=== PATIENT | female | born 1960 | race Caucasian/White ===

== ENCOUNTER 2022-10-22 10:08 | Outpatient (REF) | payer OTHER, SELFPAY ==
--- NOTE | ~2022-10-22 | MM_ITS ---
EXAMINATION: MM SCREENING DIGITAL BREAST TOMOSYNTHESIS, BILATERAL CLINICAL INFORMATION: Screening. Asymptomatic. The lifetime risk of breast cancer based on the Tyrer-Cuzick Model is 6%. COMPARISON: Mammography: 02/13/2020, 12/02/2017, 09/06/2013 TECHNIQUE: Digital breast tomosynthesis is performed in both the craniocaudal and mediolateral oblique views along with computer-aided detection (CAD). Synthesized 2D images are generated from the tomosynthesis. FINDINGS: The breasts are almost entirely fatty (ACR BI-RADS breast composition Category a). There are no significant masses, abnormal calcifications, or other abnormalities. Background stromal markings are stable. No developing density or architectural changes. The axilla and skin contours are unremarkable. MM/MM tomosynthesis screening BI IMPRESSION: No mammographic evidence of malignancy. ASSESSMENT: BI-RADS 1: Negative RECOMMENDATION: Routine annual mammography screening. This patient's information was entered into a reminder system with a target due date for their next mammogram.
== END 2022-10-22 10:09 | disposition home or self-care (01) ==
LOC: HO.MAMMO 10:08
PROVIDERS: PCP Internal Medicine; Visit Provider Internal Medicine
DX: Z12.31 Encounter for screening mammogram for malignant neoplasm of breast (principal)
CPT/HCPCS: 77063; 77067

== ENCOUNTER 2022-10-22 10:59 | Outpatient (REF) | payer OTHER, SELFPAY ==
[2022-10-22 13:27] LABS: MANUAL DIFF FLAG NO
[2022-10-22 14:02] LABS: Basophils Percent Auto 0.4 % (0-2); Eosinophils Percent Auto 0.5 % (0-4); Hematocrit 43.2 % (37.0-47.0); Hemoglobin 14.8 g/dl (12.0-16.0); Imm Gran Abs Auto 0.03 X10*3/uL (0.00-0.03); Imm Gran Pct Auto 0.5 % (0.0-0.4); Lymphocytes Absolute Auto 1.4 X10*3/uL (1.2-4.9); Lymphocytes Percent Auto 23.9 % (20-40); Mean Corpuscular HGB Conc 34.3 g/dl (31.0-35.0); Mean Corpuscular Hemoglobin 32.2 pg (27.0-33.0); Mean Corpuscular Volume 94.1 fL (80.0-98.0); Mean Platelet Volume 11.8 fL (9.4-12.3); Monocytes Absolute Auto 0.4 X10*3/uL (0.1-1.2); Monocytes Percent Auto 6.9 % (2-11); Neutrophils Absolute Auto 3.9 x10*3/uL (2.0-8.3); Neutrophils Percent Auto 67.8 % (45-73); Platelet Count 189 X10*3/uL (160-400); Red Blood Count 4.59 X10*6/uL (4.20-5.50); Red Cell Distribution Width 12.4 % (11.0-16.0); White Blood Count 5.7 X10*3/uL (4.8-10.8)
[2022-10-22 14:15] LABS: Estimated Average Glucose 117 mg/dL; Hemoglobin A1c % 5.7 %
[2022-10-22 14:21] LABS: Alanine Aminotransferase 19 U/L (0-31); Albumin Level 4.2 g/dL (3.5-5.0); Alkaline Phosphatase 94 U/L (39-117); Anion Gap 13 (12-20); Aspartate Amino Transferase 17 U/L (5-31); Bilirubin Total 0.8 mg/dL (0.0-1.0); Blood Urea Nitrogen 15 mg/dL (9-16); Calcium 9.7 mg/dL (8.4-10.2); Carbon Dioxide 28 mmol/L (22-29); Chloride 105 mmol/L (96-108); Cholesterol 256 mg/dL; Estimated Glomerular Filt Rate > 60; Glucose Random 119 mg/dL (60-115); HDL Cholesterol 64 mg/dL; LDL Cholesterol Calculated 174 mg/dl; Potassium 4.7 mmol/L (3.3-5.1); Sodium 141 mmol/L (135-145); Total Protein 6.6 g/dL (6.5-8.0); Triglycerides 92 mg/dL
[2022-10-22 14:53] LABS: Folate 8.6 ng/mL (> or = 4.0); Free T4 (Free Thyroxine) 0.89 ng/dL (0.71-1.85); Thyroid Stimulating Hormone 0.74 uIU/mL (0.32-4.0); Vitamin D 25-OH Total 6.2 ng/mL (>30)
[2022-10-22 15:18] LABS: Vitamin B12 196 pg/mL (200-900)
== END 2022-10-22 11:00 | disposition home or self-care (01) ==
LOC: HO.10HDL 10:59
PROVIDERS: Visit Provider Internal Medicine
DX: E78.00 Pure hypercholesterolemia, unspecified (principal); R73.02 Impaired glucose tolerance (oral); I10 Essential (primary) hypertension
CPT/HCPCS: 36415; 80053; 80061; 82306; 82607; 82746; 83036; 84439; 84443; 85025

== ENCOUNTER 2023-03-03 15:22 | Outpatient (AMB) | payer OTHER, SELFPAY ==
--- NOTE | 2023-03-03 15:57 | MHC.OFFWIV ---
Intake Vital Signs 03/03/23 15:59 Height 5 ft 1 in BP 120/80 Blood Pressure Location Rt brachial Position Sitting Pulse 94 Pulse Source Pulse Oximeter Temp 97.6 F Temp Source Temporal Artery Scan Pulse Oximetry (%) 97 Oxygen Delivery Method Room Air Intake Visit Reasons: EST poison renuka Intake Note: Pt is here c/o possible poison renuka on her face and arms. Patient Tobacco Use Status: Former Tobacco user Allergies No Known Allergies Allergy (Verified 03/03/23 15:59) Do you need a note to return to daycare/school/sports/work: No HPI HPI Comments History of Present Illness Details 62-year-old female presents with poison renuka exposure. [facility] Medical History Bacterial infection, unspecified Breast cancer screening by mammogram Hypercholesterolemia Hypertension Impaired glucose tolerance Leukopenia Obesity (BMI 30-39.9) Shingles rash Urinary tract infection Visual changes Vitamin D deficiency Surgical History History of appendectomy History of plastic surgery History of right hip replacement History of shoulder surgery History of total left hip arthroplasty Family History Father No problems noted. Mother Thyroid disease Hypertension Daughter In good health Brother Thyroid disease Social History Housing: House Alcohol intake: never Patient Tobacco Use Status: Former Tobacco user Years Smoked: 20 years old, quit now e-Cigarette/Vaping Use: Never Used Second Hand Smoke Exposure: No service: No Current occupational status: employed Cognitive needs: No Hearing needs: No Vision needs: Yes Review of Systems Const All systems reviewed & are unremarkable except as noted in HPI and below Skin/Breast Details: Rash on arms, hands, and face Physical Exam Vital Signs: Last Vital Signs Temp 97.6 F 03/03/23 15:59 Pulse 94 03/03/23 15:59 BP 120/80 03/03/23 15:59 Pulse Ox 97 03/03/23 15:59 Oxygen Delivery Method Room Air 03/03/23 15:59 Skin Other: Rash on the forearms bilaterally hands and face Assessment & Plan Assessment & Plan (1) Poison renuka: Code(s): L23.7 - Allergic contact dermatitis due to plants, except food Plan 62-year-old female presents with poison renuka exposure. Rash present on her arms, hands and face consistent with poison renuka and story of recent exposure while gardening given facial involvement will prescribe steroids Discharge instructions, follow up and treatment are discussed with patient in my usual fashion. Alternatives in treatment are also discussed. The patient will return for worsening symptoms or as needed. Advised that any labs/imaging ordered will be followed up on and contact made if further treatment needed. Counseled that patient's condition may require further evaluation and/or treatment. Symptoms of concern for worsening disorder discussed in detail in my customary manner. Patient does verbalize understanding of the plan, there are no apparent barriers to communication. The patient is given the opportunity to ask questions and have them answered to his/her satisfaction Medications: New prednisone 50 mg PO DAILY 5 days 5 tabs 0RF prednisone 4 tabs (40mg) day 6. 3 tabs (30mg) day 7, 2 tabs (20 mg) day 8, and 1 tab (10mg) day 9 10 mg PO DAILY 10 tabs 0RF Patient Instructions: Soothing measure options: ?- Oatmeal baths ?- Cool, wet compresses ?- Ice packs ?- Topical menthol and phenol (calamine lotion) compounds ?- Topical astringents under occlusion dressing to dry weeping lesions ?-They are agut-bkn-ngjtpxd treatment such as Burow's solution, Domeboro and Zanfel that can help with symptoms. ?-If the itching is preventing him from sleep, you can use medication such as Benadryl to help keep you from itching at nighttime. Coding Level of Care Code Est Pt Level 3 (95363) Diagnoses Poison renuka L23.7
[2023-03-03 15:59] VITALS: BP 120/80; PULSE 94; TEMP 36.4; O2SAT 97
== END 2023-03-03 16:17 | disposition home or self-care (01) ==
PROVIDERS: PCP Internal Medicine; Visit Provider Physician Assistant
DX: L23.7 Allergic contact dermatitis due to plants, except food (principal)
CPT/HCPCS: 99213

== ENCOUNTER 2023-07-11 10:07 | Outpatient (AMB) | payer OTHER, SELFPAY ==
--- NOTE | 2023-07-11 10:08 | MHC.PC.OV ---
Intake Visit Reasons: Cold Symptoms Allergies No Known Allergies Allergy (Verified 07/11/23 10:08) Tobacco use date assessed: 11/01/22 Dental Screening Dental Screen Date: 07/11/23 Did you have a dental visit in the last 12 months?: Yes Did you have a dental problem in the last 6 months where you did not have access to dental care?: No Was dental information given to patient?: Patient has dentist HPI HPI Comments History of Present Illness Details 62-year-old obese female with impaired glucose tolerance hypercholesterolemia hypertension generalized anxiety disorder last seen in February. Patient of Dr. Gann presents today for telehealth appointment. Pateint states 2 weeks ago started with sore throat, fever chills. cough. Patient reports sore throat has resolved. Patient continues to have productive cough yellow sputum. Nasal congestion with yellow drainage. Patient reports sinus pain and pressure improving. Patient taking kjal-[id number]-moiguzt cough syrup in Tylenol with minimal relief. Patient denies shortness of breath and wheezing. Reports her fevers have resolved. Patient states swabbed herself for COVID when she 1st started with symptoms and it was negative. [facility] Medical History Bacterial infection, unspecified Breast cancer screening by mammogram Hypercholesterolemia Hypertension Impaired glucose tolerance Leukopenia Obesity (BMI 30-39.9) Shingles rash Urinary tract infection Visual changes Vitamin D deficiency Surgical History History of appendectomy History of plastic surgery History of right hip replacement History of shoulder surgery History of total left hip arthroplasty Family History Father No problems noted. Mother Thyroid disease Hypertension Daughter In good health Brother Thyroid disease Social History Housing: House Alcohol intake: never Patient Tobacco Use Status: Former Tobacco user Tobacco use type: Cigarette Years Smoked: 20 years old, quit now e-Cigarette/Vaping Use: Never Used Second Hand Smoke Exposure: No service: No Current occupational status: employed Cognitive needs: No Hearing needs: No Vision needs: Yes Questionnaire PHQ-9 Over the last 2 weeks, how often have you been bothered by any of the following problems? 1. Little interest or pleasure in doing things: not at all 2. Feeling down, depressed, or hopeless: not at all 3. Trouble falling or staying asleep, or sleeping too much: not at all 4. Feeling tired or having little energy: not at all 5. Poor appetite or overeating: not at all 6. Feeling bad about yourself - or that you are a failure or have let yourself or your family down: not at all 7. Trouble concentrating on things, such as reading the newspaper or watching television: not at all 8. Moving or speaking so slowly that other people could have noticed. Or the opposite - being so fidgety or restless that you have been moving around a lot more than usual: not at all 9. Thoughts that you would be better off or of hurting yourself in some way: not at all Total score: 0 Depression Screening Interpretation: Negative Depression Screening Done: Yes Source: Developed by Drs. Cruz Quiroga, Lacey Ca, Robert Raya and colleagues, with an educational eddie from [employer]. Thrive Questionnaire Date Thrive assessed: 09/24/22 AUDIT C Alcohol Use Questionnaire (AUDIT-C) 1. How often do you have a drink containing alcohol?: Never 3. How often do you have six or more drinks on one occasion?: Never Total Score: 0 Score Reviewed/Action Taken: Yes KUSHAL-7 AMB Questionnaire KUSHAL-7 Date KUSHAL - 7 assessed: 11/01/22 Source: Developed by Drs. Cruz Quiroga, Lacey Ca, Robert Raya and colleagues, with an educational eddie from [employer]. Review of Systems Const Denies body aches and Denies chills ENT Denies otalgia, Reports nasal congestion, Reports nasal discharge (yellow), Reports sinus pain and Reports sinus pressure Card Reports no additional complaints, Denies chest pain and Denies dyspnea Resp Reports chest congestion, Reports cough, Denies dyspnea and Denies wheezing GI Reports no additional complaints Aller/Immun Denies wheezing Physical exam (Primary Care) Tobacco/Smoking Status: Tobacco use Status Tobacco use date assessed 11/01/22 07/11/23 10:09 Patient Tobacco Use Status Former Tobacco user 07/11/23 10:09 Tobacco use type Cigarette 07/11/23 10:09 e-Cigarette/Vaping Use Never Used 07/11/23 10:09 PHQ-9: PHQ-9 Score PHQ-9: Total score 0 07/11/23 10:14 Depression Screening Interpretation: Negative Thrive Assessment: Date of Thrive Assessment Date Thrive assessed 09/24/22 07/11/23 10:09 Const Other: Patient alert and oriented x3, speaking in full sentences. Patient noted to have congested cough over the phone. Telehealth Telehealth Location of provider rendering services: practice address Location of patient: address on file Patient Identification confirmed using: Name, : Yes Telehealth method: voice only Patient verbally consented to treatment: Yes Patient verbally consented to billing insurance company: Yes Patient informed of any privacy concerns related to visit: Yes Minutes spent on Phone/Video with Pt.: 10 Assessment and Plan Assessment & Plan (1) Upper respiratory infection: Code(s): J06.9 - Acute upper respiratory infection, unspecified Plan: Given patient continues to have nasal congestion and congested cough with yellow sputum production persisting x2 weeks will cover with azithromycin for upper respiratory infection. Benzonatate referral sent to patient's pharmacy for cough. Side the symptoms reviewed with patient when to follow-up or seek medical attention. Patient agreeable to plan of care. Plan Keep scheduled follow-up with PCP or follow-up sooner if needed Medications: New benzonatate 100 mg PO TID PRN 20 caps 0RF cough azithromycin For 250 mg dose pack: take 500 mg today (day 1), then 250 mg for 4 days (days 2-5) PO 6 tabs 0RF Coding Level of Care Code Est Pt Level 3 (53379) Diagnoses Upper respiratory infection J06.9
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
== END 2023-07-11 10:17 | disposition home or self-care (01) ==
LOC: HO.HMGH 10:07
PROVIDERS: PCP Internal Medicine; Visit Provider Nurse Practitioner Family
DX: J06.9 Acute upper respiratory infection, unspecified (principal)
CPT/HCPCS: 99213

== ENCOUNTER 2023-09-02 14:42 | Outpatient (AMB) | payer OTHER, SELFPAY ==
[2023-09-02 14:44] VITALS: BP 130/96; PULSE 86; O2SAT 99; BMI 34.4
--- NOTE | 2023-09-02 14:44 | MHC.PC.OV ---
Vital Signs 09/02/23 14:44 09/02/23 15:18 Height 5 ft 1 in Weight 182 lb 0.6 oz BMI 34.4 BP 130/96 H 128/90 H Blood Pressure Location Lt brachial Lt brachial Position Sitting Sitting Pulse 86 Pulse Source Pulse Oximeter Pulse Oximetry (%) 99 Oxygen Delivery Method Room Air Intake Visit Reasons: plantar fasciitis, Obesity Residential Living Assistant Required: No Allergies No Known Allergies Allergy (Verified 09/02/23 14:44) Medication List - Last Reconciled 09/02/23 by Sam Gann MD alprazolam 0.25 mg PO DAILY PRN 30 days benzonatate 100 mg PO TID PRN blood pressure monitor (Blood Pressure Kit) As directed cholecalciferol (vitamin D3) 50 mcg PO DAILY 90 days cyanocobalamin (vitamin B-12) 1,000 mcg PO DAILY liraglutide (weight loss) (Saxenda) inject subcutaneously once daily: week 1 = 0.6 mg; week 2 = 1.2 mg; week 3 = 1.8 mg; week 4 = 2.4 mg; then 3 mg daily subcut lisinopril-hydrochlorothiazide 20-12.5 mg 1 tab PO DAILY 90 days pen needle, diabetic (BD Ultra-Fine Karrie Pen Needle) test once daily tramadol 50 mg PO Q6-8H 30 days Tobacco use date assessed: 09/02/23 Dental Screening Dental Screen Date: 09/02/23 Did you have a dental visit in the last 12 months?: Yes Did you have a dental problem in the last 6 months where you did not have access to dental care?: No Was dental information given to patient?: Patient has dentist HPI plantar fasciitis, Obesity HPI Details 62-year-old obese female with impaired glucose tolerance hypertension hypercholesterolemia generalized anxiety disorder last seen in July for an upper respiratory tract infection patient is here for follow-up. Patient's colonoscopy is due, hard time acquiring the GLP 1 injection and discussed that can sent the prescription to wherever she can get the medication. Meanwhile noted blood pressure to be mildly elevated and advised to monitor at home and we can have to adjust medication. [facility] Medical History Bacterial infection, unspecified Breast cancer screening by mammogram Hypercholesterolemia Hypertension Impaired glucose tolerance Leukopenia Obesity (BMI 30-39.9) Shingles rash Urinary tract infection Visual changes Vitamin D deficiency Surgical History History of appendectomy History of plastic surgery History of right hip replacement History of shoulder surgery History of total left hip arthroplasty Family History Father No problems noted. Mother Thyroid disease Hypertension Daughter In good health Brother Thyroid disease Social History Housing: House Alcohol intake: never Patient Tobacco Use Status: Former Tobacco user Tobacco use type: Cigarette Years Smoked: 20 years old, quit now e-Cigarette/Vaping Use: Never Used Second Hand Smoke Exposure: No service: No Current occupational status: employed Cognitive needs: No Hearing needs: No Vision needs: Yes Questionnaire Thrive Questionnaire Date Thrive assessed: 09/02/23 I am a: Patient What is your living situation today?: I have a steady place to live Within the past 12 months, did the food you bought not last and you didn't have the money to get more?: Never true Within the past 12 months, did you worry whether your food would run out before you got money to buy more?: Never true Do you have trouble paying for medicines?: No Do you have trouble getting transportation to medical appointments?: No Do you have trouble paying your heating and electricity bill?: No Do you have trouble taking care of your child, family member or friend?: No Do you have trouble with day-to-day activities such as bathing, preparing meals, shopping, managing finances, etc.?: No Are you currently unemployed and looking for a job?: No Are you interested in more education?: No THRIVE Score: 0 AUDIT C Alcohol Use Questionnaire (AUDIT-C) 1. How often do you have a drink containing alcohol?: Never 3. How often do you have six or more drinks on one occasion?: Never Total Score: 0 Score Reviewed/Action Taken: Yes KUSHAL-7 AMB Questionnaire KUSHAL-7 Date KUSHAL - 7 assessed: 09/02/23 Feeling nervous, anxious, or on edge: 0 = Not at all Not being able to stop or control worryin = Not at all Worrying too much about different things: 0 = Not at all Trouble relaxin = Not at all Being so restless that it is hard to sit still: 0 = Not at all Becoming easily annoyed or irritable: 0 = Not at all Feeling afraid as if something awful might happen: 0 = Not at all Total KUSHAL-7 score (0-4 normal; 5-9 mild; 10-14 moderate; 15-21 severe): 0 Source: Developed by Drs. Cruz Quiroga, Lacey Ca, Robert Raya and colleagues, with an educational eddie from [employer] Physical exam (Primary Care) Vital Signs: Last Vital Signs Pulse 86 09/02/23 14:44 BP 130/96 H 09/02/23 14:44 Pulse Ox 99 09/02/23 14:44 Oxygen Delivery Method Room Air 09/02/23 14:44 BMI result Body Mass Index 34.4 Tobacco/Smoking Status: Tobacco use Status Tobacco use date assessed 09/02/23 09/02/23 14:45 Patient Tobacco Use Status Former Tobacco user 09/02/23 14:45 Tobacco use type Cigarette 09/02/23 14:45 e-Cigarette/Vaping Use Never Used 09/02/23 14:45 Thrive Assessment: Date of Thrive Assessment Date Thrive assessed 09/02/23 09/02/23 14:45 Const General: alert; No acute distress Eyes Conjunctivae: conjunctivae normal Resp Auscultation: clear to auscultation bilaterally Cardio Rate: regular rate Rhythm: regular rhythm GI Inspection: Yes normal to inspection Extrem General: Yes normal to inspection and No edema Assessment and Plan Assessment & Plan (1) Obesity (BMI 30-39.9): Code(s): E66.9 - Obesity, unspecified Plan: med rx prescribed (2) Hypertension: Code(s): I10 - Essential (primary) hypertension Qualifiers: Hypertension type: essential hypertension Qualified Code(s): I10 - Essential (primary) hypertension Plan: Blood pressure presently on lisinopril hydrochlorothiazide (3) Hypercholesterolemia: Code(s): E78.00 - Pure hypercholesterolemia, unspecified Plan: Avoid fried foods, chicken skin, eggs, butter margarine, pastries and meat. Be it pork or beef they have a lot of cholesterol LDL goal of less than 130 and triglyceride of less than 150 patient will need blood work (4) Impaired glucose tolerance: Code(s): R73.02 - Impaired glucose tolerance (oral) Plan: Decrease the amount of carbohydrate intake, pasta, bread, rice and potatoes are all sugar and that is aside from all the sweet stuff, remember that fruits are good but they are Sweet also. (5) Generalized anxiety disorder: Comment: decline counselling 08/2023 Code(s): F41.1 - Generalized anxiety disorder Plan: Continue with present medication (6) Colon cancer screening: Code(s): Z12.11 - Encounter for screening for malignant neoplasm of colon Plan: Reminded about colonoscopy Medications: New tirzepatide (weight loss) (Zepbound) 2.5 mg (0.5 mL) subcut QWEEK 4 weeks 2 mL 0RF E66.9 - Obesity, unspecified Discontinued liraglutide (weight loss) (Saxenda) Discontinued Reason: Doctor's Order inject subcutaneously once daily: week 1 = 0.6 mg; week 2 = 1.2 mg; week 3 = 1.8 mg; week 4 = 2.4 mg; then 3 mg daily subcut 15 mL 0RF E66.9 - Obesity, unspecified Coding Level of Care Code Est Pt Level 4 (15387) Diagnoses Obesity (BMI 30-39.9) E66.9 Essential hypertension I10 Hypertension type: essential hypertension Hypercholesterolemia E78.00 Impaired glucose tolerance R73.02 Generalized anxiety disorder F41.1 Colon cancer screening Z12.11
[2023-09-02 15:18] VITALS: BP 128/90
== END 2023-09-02 15:26 | disposition home or self-care (01) ==
PROVIDERS: PCP Internal Medicine; Visit Provider Internal Medicine
DX: I10 Essential (primary) hypertension (principal); E78.00 Pure hypercholesterolemia, unspecified; E66.9 Obesity, unspecified; Z68.34 Body mass index [BMI] 34.0-34.9, adult; R73.02 Impaired glucose tolerance (oral); F41.1 Generalized anxiety disorder
CPT/HCPCS: 99214

== ENCOUNTER 2024-03-24 10:22 | Outpatient (REF) | payer OTHER, SELFPAY ==
[2024-03-24 10:33] LABS: MANUAL DIFF FLAG NO
[2024-03-24 11:10] LABS: Basophils Percent Auto 0.4 % (0-2); Eosinophils Absolute Auto 0.1 X10*3/uL (0.0-0.4); Eosinophils Percent Auto 1.3 % (0-4); Hematocrit 43.9 % (37.0-47.0); Imm Gran Abs Auto 0.01 X10*3/uL (0.00-0.03); Imm Gran Pct Auto 0.2 % (0.0-0.4); Lymphocytes Absolute Auto 1.8 X10*3/uL (1.2-4.9); Lymphocytes Percent Auto 40.2 % (20-40); Mean Corpuscular HGB Conc 34.2 g/dl (31.0-35.0); Mean Corpuscular Hemoglobin 32.7 pg (27.0-33.0); Mean Corpuscular Volume 95.6 fL (80.0-98.0); Mean Platelet Volume 11.4 fL (9.4-12.3); Monocytes Absolute Auto 0.4 X10*3/uL (0.1-1.2); Monocytes Percent Auto 9.6 % (2-11); Neutrophils Absolute Auto 2.2 x10*3/uL (2.0-8.3); Neutrophils Percent Auto 48.3 % (45-73); Platelet Count 184 X10*3/uL (160-400); Red Blood Count 4.59 X10*6/uL (4.20-5.50); White Blood Count 4.5 X10*3/uL (4.8-10.8)
[2024-03-24 11:17] LABS: Estimated Average Glucose 100 mg/dL; Hemoglobin A1c % 5.1 % (<6.0)
[2024-03-24 11:45] LABS: Alanine Aminotransferase 14 U/L (0-31); Albumin Level 4.1 g/dL (3.5-5.0); Alkaline Phosphatase 70 U/L (39-117); Anion Gap 11 (12-20); Aspartate Amino Transferase 16 U/L (5-31); Bilirubin Total 0.6 mg/dL (0.0-1.0); Blood Urea Nitrogen 17 mg/dL (9-16); Calcium 9.9 mg/dL (8.4-10.2); Carbon Dioxide 26 mmol/L (22-29); Chloride 108 mmol/L (96-108); Cholesterol 271 mg/dL (<200); Estimated Glomerular Filt Rate > 60; Glucose Random 97 mg/dL (60-115); HDL Cholesterol 69 mg/dL (>40); LDL Cholesterol Calculated 181 mg/dL (<100); Potassium 4.2 mmol/L (3.3-5.1); Sodium 141 mmol/L (135-145); Total Protein 6.8 g/dL (6.5-8.0); Triglycerides 109 mg/dL (<150)
[2024-03-24 12:02] LABS: Free T4 (Free Thyroxine) 0.98 ng/dL (0.71-1.85); Thyroid Stimulating Hormone 1.05 uIU/mL (0.32-4.0); Vitamin D 25-OH Total 34.9 ng/mL (>30)
[2024-03-24 12:11] LABS: Folate 7.3 ng/mL (> or = 4.0); Vitamin B12 762 pg/mL (200-900)
== END 2024-03-24 10:23 | disposition home or self-care (01) ==
LOC: HO.LAB 10:22
PROVIDERS: PCP Internal Medicine; Visit Provider Internal Medicine
DX: E78.00 Pure hypercholesterolemia, unspecified (principal); E53.8 Deficiency of other specified B group vitamins; R73.02 Impaired glucose tolerance (oral); E55.9 Vitamin D deficiency, unspecified
CPT/HCPCS: 36415; 80053; 80061; 82306; 82607; 82746; 83036; 84439; 84443; 85025

== ENCOUNTER 2024-03-26 13:10 | Outpatient (AMB) | payer OTHER, SELFPAY ==
--- NOTE | 2024-03-26 13:18 | A.OFFPC_ITS ---
Vital Signs 03/26/24 13:19 Height 5 ft 1 in Weight 167 lb 8 oz BMI 31.6 BP 122/80 Blood Pressure Location Lt brachial Position Sitting Pulse 88 Pulse Source Pulse Oximeter Pulse Oximetry (%) 95 Oxygen Delivery Method Room Air Intake Visit Reasons: Hypertension, obesity Senior Mechanical Development Engineer Required: No Accompanied by: self Allergies No Known Allergies Allergy (Verified 03/26/24 13:23) Tobacco use date assessed: 03/26/24 Dental Screening Dental Screen Date: 03/26/24 Did you have a dental visit in the last 12 months?: Yes Did you have a dental problem in the last 6 months where you did not have access to dental care?: No Was dental information given to patient?: Patient has dentist HPI Hypertension, obesity HPI Details 63-year-old obese female with hypertensi on hypercholesterolemia impaired glucose tolerance generalized anxiety disorder last seen in August 2023 and was advised colonoscopy. noted weight loss on saxenda [facility] Medical History Bacterial infection, unspecified Breast cancer screening by mammogram Hypercholesterolemia Hypertension Impaired glucose tolerance Leukopenia Obesity (BMI 30-39.9) Shingles rash Urinary tract infection Visual changes Vitamin D deficiency Surgical History History of appendectomy History of plastic surgery History of right hip replacement History of shoulder surgery History of total left hip arthroplasty Family History Father No problems noted. Mother Thyroid disease Hypertension Daughter In good health Brother Thyroid disease Social History Housing: House Alcohol intake: never Patient Tobacco Use Status: Former Tobacco user Tobacco use type: Cigarette Years Smoked: 20 years old, quit now e-Cigarette/Vaping Use: Never Used Second Hand Smoke Exposure: No service: No Current occupational status: employed Cognitive needs: No Hearing needs: No Vision needs: Yes Questionnaire PHQ-9 Over the last 2 weeks, how often have you been bothered by any of the following problems? 1. Little interest or pleasure in doing things: not at all 2. Feeling down, depressed, or hopeless: not at all 3. Trouble falling or staying asleep, or sleeping too much: not at all 4. Feeling tired or having little energy: not at all 5. Poor appetite or overeating: not at all 6. Feeling bad about yourself - or that you are a failure or have let yourself or your family down: not at all 7. Trouble concentrating on things, such as reading the newspaper or watching television: not at all 8. Moving or speaking so slowly that other people could have noticed. Or the opposite - being so fidgety or restless that you have been moving around a lot more than usual: not at all 9. Thoughts that you would be better off or of hurting yourself in some way: not at all Total score: 0 Depression Screening Interpretation: Negative Depression Screening Done: Yes Source: Developed by Drs. Cruz Quiroga, Lacey Ca, Robert Raya and colleagues, with an educational eddie from [employer]. Thrive Questionnaire Date Thrive assessed: 03/26/24 I am a: Patient What is your living situation today?: I have a steady place to live Within the past 12 months, did the food you bought not last and you didn't have the money to get more?: Never true Within the past 12 months, did you worry whether your food would run out before you got money to buy more?: Never true Do you have trouble paying for medicines?: No Do you have trouble getting transportation to medical appointments?: No Do you have trouble paying your heating and electricity bill?: No Do you have trouble taking care of your child, family member or friend?: No Do you have trouble with day-to-day activities such as bathing, preparing meals, shopping, managing finances, etc.?: No Are you currently unemployed and looking for a job?: No Are you interested in more education?: No Currently or been in a relationship where the following occur: No concerns reported THRIVE Score: 0 AUDIT C Alcohol Use Questionnaire (AUDIT-C) 1. How often do you have a drink containing alcohol?: Never 3. How often do you have six or more drinks on one occasion?: Never Total Score: 0 Score Reviewed/Action Taken: Yes KUSHAL-7 AMB Questionnaire KUSHAL-7 Date KUSHAL - 7 assessed: 03/26/24 Feeling nervous, anxious, or on edge: 0 = Not at all Not being able to stop or control worryin = Not at all Worrying too much about different things: 0 = Not at all Trouble relaxin = Not at all Being so restless that it is hard to sit still: 0 = Not at all Becoming easily annoyed or irritable: 0 = Not at all Feeling afraid as if something awful might happen: 0 = Not at all Total KUSHAL-7 score (0-4 normal; 5-9 mild; 10-14 moderate; 15-21 severe): 0 Source: Developed by Drs. Cruz Quiroga, Lacye Ca, Robert Raya and colleagues, with an educational eddie from [employer]. Physical exam (Primary Care) Vital Signs: Last Vital Signs Pulse 88 03/26/24 13:19 BP 122/80 03/26/24 13:19 Pulse Ox 95 03/26/24 13:19 Oxygen Delivery Method Room Air 03/26/24 13:19 BMI result Body Mass Index 31.6 Tobacco/Smoking Status: Tobacco use Status Tobacco use date assessed 03/26/24 03/26/24 13:26 Patient Tobacco Use Status Former Tobacco user 03/26/24 13:23 Tobacco use type Cigarette 03/26/24 13:23 e-Cigarette/Vaping Use Never Used 03/26/24 13:23 PHQ-9: PHQ-9 Score PHQ-9: Total score 0 03/26/24 13:31 Depression Screening Interpretation: Negative Thrive Assessment: Date of Thrive Assessment Date Thrive assessed 03/26/24 03/26/24 13:26 Currently or been in a relationship where the following occur: No concerns reported Const General: alert; No acute distress Eyes Conjunctivae: conjunctivae normal Resp Auscultation: clear to auscultation bilaterally Cardio Rate: regular rate Rhythm: regular rhythm GI Inspection: Yes normal to inspection Extrem General: Yes normal to inspection and No edema Assessment and Plan Assessment & Plan (1) Obesity (BMI 30-39.9): Code(s): E66.9 - Obesity, unspecified Plan: Diet and exercise. Has been started on Liraglutide (2) Hypertension: Code(s): I10 - Essential (primary) hypertension Qualifiers: Hypertension type: essential hypertension Qualified Code(s): I10 - Essential (primary) hypertension Plan: Continue with blood pressure medication. Decrease salt intake and exercise takes lisinopril hydrochlorothiazide (3) Hypercholesterolemia: Code(s): E78.00 - Pure hypercholesterolemia, unspecified Plan: Avoid fried foods, chicken skin, eggs, butter margarine, pastries and meat. Be it pork or beef they have a lot of cholesterol LDL goal of less than 130 and triglyceride of less than 150. (4) Colon cancer screening: Code(s): Z12.11 - Encounter for screening for malignant neoplasm of colon Plan: Patient is reminded about colonoscopy (5) Breast cancer screening by mammogram: Code(s): Z12.31 - Encounter for screening mammogram for malignant neoplasm of breast Plan: Patient is reminded about mammogram Orders: Orders Lipid Panel 3 Months E78.00 - Pure hypercholesterolemia, unspecified Comprehensive Met. Panel Today E78.00 - Pure hypercholesterolemia, unspecified Medications: New rosuvastatin 5 mg PO DAILY 30 tabs 3RF E78.00 - Pure hypercholesterolemia, unspecified Coding Level of Care Code Est Pt Level 4 (47749) Diagnoses Obesity (BMI 30-39.9) E66.9 Essential hypertension I10 Hypertension type: essential hypertension Hypercholesterolemia E78.00 Colon cancer screening Z12.11 Breast cancer screening by mammogram Z12.31
[2024-03-26 13:19] VITALS: BP 122/80; PULSE 88; O2SAT 95; BMI 31.6
== END 2024-03-26 13:55 | disposition home or self-care (01) ==
PROVIDERS: PCP Internal Medicine; Visit Provider Internal Medicine
DX: I10 Essential (primary) hypertension (principal); Z68.31 Body mass index [BMI] 31.0-31.9, adult; E66.9 Obesity, unspecified; E78.00 Pure hypercholesterolemia, unspecified; Z12.11 Encounter for screening for malignant neoplasm of colon; Z12.31 Encounter for screening mammogram for malignant neoplasm of breast
CPT/HCPCS: 99214

== ENCOUNTER 2024-05-12 12:30 | Outpatient (REF) | payer OTHER, SELFPAY | END 2024-05-12 12:31 | disposition home or self-care (01) | LOC: HO.LNP 12:30 | PROVIDERS: Physician Assistant Medical; PCP Internal Medicine | DX: Z13.89 Encounter for screening for other disorder (principal) ==

== ENCOUNTER 2024-05-12 12:30 | Outpatient (AMB) | payer OTHER, SELFPAY ==
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
--- OUTSIDE RECORDS SUMMARY | 2024-05-12 12:33 | XMS_ITS | Patient Health Record ---
Author Organization [facility] Address [address] [place] [address] Care Team Providers Care Operation Research Analyst Name Role Phone CHRISTIAN VANEGAS Unavailable [phone] REASON FOR REFERRAL No Information MEDICATIONS Medication SIG (Take, Route, Fr equency, Duration) Notes Start Date End Date Status Contrave 8-90 MG 2 tablets Orally Twi ce a day for 30 day(s) undefined 04/26/2018 Active Vitamin D 1000 UNIT 1 tablet Orally Once a day for 30 day(s) Active Lisinopril 10 MG 1 tablet Orally Once a day for 30 day(s) Active traMADol HCl 50 MG 1 tablet as needed O rally every 6 hrs Active SOCIAL HISTORY Tobacco Use: Social History Observation Description Date Details (start date - stop date) Former Smoker NA - NA Sex Assigned At : Social History Observation Description Sex Assigned At Unknown Tobacco Use/Smoking Question Answer Notes Are you a former smoker PROBLEMS Problem Type ICD Code Onset Dates Problem Status W/U Status Risk SNOMED Code Notes Problem Other obesity (E66.8) Active confirmed Obesity (156905733) Problem Insomnia due to medical condition (G47.01) Active confirmed Insomnia (811016811) Problem Essential (primary) hypertension (I10) Active confirmed Essential hypertension (62019550) Problem Body mass index (BMI) 33.0-33.9, adult (Z68.33) Active confirmed Body mass ind ex 30.00 to 34.99 ([id number] ) PLAN OF TREATMENT No Information Insurance Providers Payer Name Payer Address Payer Phone Subscriber Number Group Number Insured Name Patient Relationship to Insured Coverage Start Date Coverage End Date [facility] [place] [address] [place] [address] [id number] JEEVAN YI Self - patient is the insured MEDICAL (GENERAL) HISTORY Medical History History ICD Code hypertension, benign hyperlipidemia Surgical History Surgery Date(Month/Year) appendectomy right hip replacement right shoulder
--- OUTSIDE RECORDS SUMMARY | 2024-05-12 12:33 | XMS_ITS ---
Author Organization [facility] Address [address] [place] [id number] Care Team Providers Care Photographic Restorer Name Role Phone Sam Gann MD Primary Care Provider You Cummings Jr Unavailable Encounters Encounter Location Date Provider Diagnosis [facility] [address] [place] [phone] 02/24/2023 You Malik Jr PLAN OF TREATMENT No Information
[2024-05-12 12:38] VITALS: BP 122/80; PULSE 87; TEMP 36.9; O2SAT 98
--- NOTE | 2024-05-12 12:38 | AM.OFFWIN_ITS ---
Intake Vital Signs 05/12/24 12:38 Height 5 ft 1 in BP 122/80 Blood Pressure Location Rt brachial Position Sitting Pulse 87 Pulse Source Pulse Oximeter Temp 98.4 F Temp Source Oral Pulse Oximetry (%) 98 Oxygen Delivery Method Room Air Intake Visit Reasons: EP/ Flu? Intake Note: pt is here for c/o possible flu Patient Tobacco Use Status: Former Tobacco user Allergies No Known Allergies Allergy (Verified 07/23/24 09:53) HPI EP/ Flu? HPI Details Patient is a 63-year-old female comes to the walk-in complaining of a few days of sore throat, runny nose, persistent cough, feeling tired and is questioning if she has the flu. No known sources. She has a history of a reactive airway with getting respiratory infections. No fever or chills, myalgias or malaise, dizziness or vertigo, weakness, nausea vomiting or diarrhea, headache, runny nose cough or other respiratory symptoms, abdominal pain or pelvic pain, urinary symptoms, chest pain or shortness of breath, or other significant associated symptoms. [facility], [facility] Medical History Breast cancer screening by mammogram Urinary tract infection Visual changes Bacterial infection, unspecified Shingles rash Obesity (BMI 30-39.9) Leukopenia Vitamin D deficiency Impaired glucose tolerance Hypercholesterolemia Hypertension Surgical History History of appendectomy History of plastic surgery History of right hip replacement History of shoulder surgery History of total left hip arthroplasty Family History Father No problems noted. Mother Thyroid disease Hypertension Daughter In good health Brother Thyroid disease Social History Housing: House Alcohol intake: never Patient Tobacco Use Status: Former Tobacco user Tobacco use type: Cigarette Years Smoked: 20 years old, quit now e-Cigarette/Vaping Use: Never Used Second Hand Smoke Exposure: No service: No Current occupational status: employed Cognitive needs: No Hearing needs: No Vision needs: Yes Review of Systems Const All systems reviewed & are unremarkable except as noted in HPI and below Physical Exam Vital Signs: Last Vital Signs Temp 98.4 F 05/12/24 12:38 Pulse 87 05/12/24 12:38 BP 122/80 05/12/24 12:38 Pulse Ox 98 05/12/24 12:38 Oxygen Delivery Method Room Air 05/12/24 12:38 Const General: cooperative, healthy appearing, comfortable, no acute distress, alert, awake, Physically active, ill appearing (Mildly), tired appearing and well groomed; No anxious, diaphoretic, intoxicated appearing or poor hygiene Nutritional Appearance: average body habitus Orientation/consciousness: oriented to person Limitations: no limitations HEENT Head: Yes normal to inspection, Yes normocephalic and Yes atraumatic Ears: hearing grossly normal bilaterally, external ears normal, TM's normal bilaterally and EAC's normal General nose exam: Normal external nose present, Normal nares present, No nasal polyps present, Normal nasal mucous membranes and turbinates present, Normal septum present and No nasal discharge present Face and sinus: Yes normal facial exam, Yes sinuses nontender and Yes face symmetric Mouth: Normal oral and palatal mucosa present, lip normal and tongue normal Throat: Yes posterior oropharynx normal, No peritonsillar mass, No postnasal drainage, No uvular edema and No cobblestoning Eyes General: appearance normal, both eyes and all related structures Neck Neck: Yes normal visual inspection, Yes full ROM, Yes no lymphadenopathy, Yes trachea midline, Yes supple and No anterior neck swelling Chest Chest palpation & inspection: normal palpation of entire chest wall Resp Effort & Inspection: normal respiratory effort, able to speak in complete sentences, no audible wheezes, no grunting, not labored, no nasal flaring, no retractions and symmetric chest movement Auscultation: clear to auscultation bilaterally, no crackles, no rales, no r honchi, no wheezes, lung sounds not diminished and No rub present Cardio Palpation: normal PMI Rate: regular rate Rhythm: regular rhythm Heart sounds: S1 normal heart sound present and S2 normal heart sound present Skin Other: Good color, warm and dry Neuro General: oriented to person Psych Appearance: grossly normal Mental Status: mental status grossly normal Speech and movement: Normal speech and movement present Affect: normal affect Attitude: cooperative Thought process: Normal thought process present Insight: Good insight present (Psych) Judgement: Good judgement present (Psych) Assessment & Plan Assessment & Plan (1) Reactive airway disease: Code(s): J45.909 - Unspecified asthma, uncomplicated Qualifiers: Asthma severity: mild Asthma persistence: persistent Asthma complication type: uncomplicated Qualified Code(s): J45.30 - Mild persistent asthma, uncomplicated Plan Patient is a 63-year-old female who comes to the walk-in clinic with apparent viral symptoms with a reactive cough. She is pending flu COVID and RSV results. She has a persistent cough, and I am refilling her albuterol today, and I think a course of prednisone as well as Tessalon Perles might help. I also wrote her for azithromycin. She declines chest x-ray today. She has no chest congestion, chest pressure, tightness in the chest or shortness of breath, dyspnea on exertion or other respiratory difficulty suggestive of lower respiratory infection otherwise. She should follow up if symptoms persist or worsen as a chest x-ray might be appropriate at that point, and she knows to go to the emergency department with worrisome symptoms. Orders: Orders SARS-CoV2/FLU/RSV 05/14/24 R09.89 - Other specified symptoms and signs involving the circulatory and respiratory systems Medications: New benzonatate 200 mg PO BID-TID PRN 30 caps 0RF cough prednisone then take 2 and half tabs daily for 3 days, then take 2 tabs daily for 3 days, then take 1 and half tabs daily for 3 days, and then take 1 tab daily for 3 days 60 mg (3 x 20 mg) PO DAILY 30 tabs 0RF 3 days azithromycin take 500 mg today (day 1), then 250 mg for 4 days (days 2-5) PO 6 tabs 0RF albuterol sulfate 90 mcg/actuation 1 inh inhalation QID PRN 8.5 grams 0RF shortness of breath or wheezing Coding Level of Care Code Est Pt Level 4 (51143) Diagnoses Mild persistent reactive airway disease without complication J45.30 Asthma severity: mild Asthma persistence: persistent Asthma complication type: uncomplicated
== END 2024-05-12 14:22 | disposition home or self-care (01) ==
PROVIDERS: PCP Internal Medicine; Visit Provider Physician Assistant Medical
DX: J45.30 Mild persistent asthma, uncomplicated (principal)

== ENCOUNTER 2024-05-13 16:19 | Outpatient (REF) | payer OTHER, SELFPAY ==
[2024-05-14 17:08] LABS: Influenza A PCR NEGATIVE (Negative); Influenza B PCR NEGATIVE (Negative); Resp Syncy Virus RNA Qual PCR NEGATIVE (Negative); SARS COV2 PCR INHOUSE NEGATIVE (Negative)
== END 2024-05-13 16:20 | disposition home or self-care (01) ==
LOC: HO.LNP 16:19
PROVIDERS: Visit Provider Physician Assistant Medical
DX: R09.89 Other specified symptoms and signs involving the circulatory and respiratory systems (principal)
CPT/HCPCS: 0241U

== ENCOUNTER 2024-05-13 18:17 | Emergency (ER) | payer OTHER, SELFPAY ==
[2024-05-13 18:21] VITALS: BP 129/79; PULSE 100; RESP 19; TEMP 36.6; O2SAT 94; BMI 31.4
--- NOTE | 2024-05-13 18:22 | ED.GENADULT ---
HPI - General Adult General Chief complaint: Eye Problems Stated complaint: Bleach in R eye Time Seen by Provider: 05/13/24 18:32 Source: patient Mode of arrival: ambulatory Limitations: no limitations History of Present Illness ED Provider: Viviana Siddiqui PA-C HPI narrative: Patient is a 63 year old assigned female at with a history of HTN and anxiety presenting to the emergency department today with right eye pain. Patient states that when handling bleach today she got a small splash of it into her right eye. Patient states that she immediately rinsed it but continues to have pain. Patient denies any dizziness, lightheadedness, abdominal pain, nausea, vomiting, fever, chills, blurry vision, double vision, loss of vision, chest pain, difficulty breathing, shortness of breath, back pain, night sweats, pain with urination, increased urinary frequency, increased urinary urgency, blood in her urine or stool, syncope or a near syncopal episode, bowel incontinence, bladder incontinence, or any other complaints at this time. Location: right (eye) Relieving factors: none Exacerbating factors: none Associated symptoms: denies other symptoms Treatments prior to arrival: other (rinsed eye) Related Data Previous Rx's ?Medication ?Instructions ?Recorded blood pressure monitor (Blood #1 ea 11/01/22 Pressure Kit) pen needle, diabetic 32 gauge x #100 ea 03/04/23 (BD Ultra-Fine Karrie Pen Needle) alprazolam 0.25 mg tablet 0.25 mg PO DAILY PRN anxiety 30 12/08/23 days #15 tabs lisinopril 20 1 tab PO DAILY 90 days #90 tabs 01/05/24 mg-hydrochlorothiazide 12.5 mg tablet liraglutide (weight loss) 3 mg/0.5 2.4 mg (0.4 mL) subcut DAILY 30 02/20/24 mL (18 mg/3 mL) subcut pen days #12 mL injector (Saxenda) cholecalciferol (vitamin D3) 50 50 mcg PO DAILY 90 days #90 caps 03/12/24 mcg (2,000 unit) capsule rosuvastatin 5 mg tablet 5 mg PO DAILY #90 tabs 04/05/24 tramadol 50 mg tablet 50 mg PO Q6-8H 30 days #90 tabs 04/26/24 cyanocobalamin (vitamin B-12) 1,000 mcg PO DAILY #30 caps 05/02/24 1,000 mcg capsule albuterol sulfate 90 mcg/actuation 1 inh inhalation QID PRN shortness 05/12/24 aerosol inhaler of breath or wheezing #8.5 grams azithromycin 250 mg tablet See Rx Instructions PO .COMPLEX #6 05/12/24 tabs benzonatate 200 mg capsule 200 mg PO BID-TID PRN cough #30 05/12/24 caps prednisone 20 mg tablet 60 mg (3 x 20 mg) PO DAILY 3 days 05/12/24 #30 tabs polymyxin B sulfate 10,000 1 drp ophthalmic (eye) QID 7 days 05/13/24 unit-trimethoprim 1 mg/mL eye drops #10 mL Allergies Allergy/AdvReac Type Severity Reaction Status Date / Time No Known Allergies Allergy Verified 05/13/24 18:24 Review of Systems Constitutional: Constitutional: Reports no additional constitutional complaints, Denies chills, Denies fever(s) and Denies night sweats Eyes: Eyes: Reports no additional eye complaints, Denies blurry vision, Denies change in vision, Denies diplopia, Denies eye discharge, Reports irritation (right), Denies loss of vision and Reports eye pain (right) ENT: Denies dizziness Cardiovascular: Cardiovascular: Reports no additional cardiovascular complaints, Denies chest pain, Denies lightheadedness, Denies Loss of Consciousness and Denies dyspnea Respiratory: Respiratory: Reports no additional respiratory complaints and Denies dyspnea Gastrointestinal: Gastrointestinal: Reports no additional gastrointestinal complaints, Denies abdominal pain, Denies melena, Denies hematochezia, Denies change in bowel habits and Denies change in stool character Genitourinary: Genitourinary: Denies hematuria, Denies urinary frequency, Denies dysuria, Denies urinary incontinence, Denies urinary hesitancy and Denies urinary urgency Musculoskeletal: Musculoskeletal: Reports no additional musculoskeletal complaints, Denies numbness and Denies tingling Neurologic: Denies dizziness, Denies loss of vision, Denies numbness and Denies tingling Psychiatric: Psychiatric: Reports no additional psychiatric complaints Endocrine: Endocrine: Reports no additional endocrine complaints Hematologic/Lymphatic: Hematologic/Lymphatic: Reports no additional hematologic/lymphatic complaints Allergic/Immunologic: Allergic/Immunologic: Reports no additional allergic/immunologic complaints PMFSH Past Medical History Attestation statement: The following information was validated with the patient. Source: old records reviewed and nursing notes reviewed Medical History Breast cancer screening by mammogram Urinary tract infection Visual changes Bacterial infection, unspecified Shingles rash Obesity (BMI 30-39.9) Leukopenia Vitamin D deficiency Impaired glucose tolerance Hypercholesterolemia Hypertension Surgical History History of appendectomy History of plastic surgery History of right hip replacement History of shoulder surgery History of total left hip arthroplasty Family History Family History Father No problems noted. Mother Thyroid disease Hypertension Daughter In good health Brother Thyroid disease Social History Social History Housing: House Alcohol intake: never Patient Tobacco Use Status: Former Tobacco user Tobacco use type: Cigarette Years Smoked: 20 years old, quit now e-Cigarette/Vaping Use: Never Used Second Hand Smoke Exposure: No Advance Directives: No Advance Directives Information Provided: No Do you have a plan to hurt others: No Plan service: No Current occupational status: employed Cognitive needs: No Hearing needs: No Vision needs: Yes Physical Exam ED Vital Signs: Vital Signs - 24 hr 05/13/24 18:21 05/13/24 19:49 05/13/24 19:54 Temperature 98 F 98.4 F 98.4 F Pulse Rate 100 78 78 Respiratory Rate 19 18 18 Blood Pressure 129/79 117/51 L 117/51 L Pulse Oximetry 94 96 96 Oxygen Delivery Method Room Air Room Air Room Air BMI result Body Mass Index 31.4 Const General: cooperative, no acute distress, alert and awake Nutritional Appearance: well nourished Orientation/consciousness: patient oriented x3 Limitations: no limitations HENMT Head: Yes normal to inspection and Yes atraumatic Ears: hearing grossly normal bilaterally and external ears normal General nose exam: Normal external nose present, no nasal discharge noted and no epistaxis Face and sinus: Yes normal facial exam, No abrasion and No laceration Mouth: Normal oral and palatal mucosa present, no drooling and no muffled voice Eyes Other: right eye has some minimal injection / irritation Periorbital: periorbital findings normal Eyelids: Yes eyelids normal Pupils: Equal, round and reactive pupils present EOM: EOMs intact bilaterally Neck Neck: Yes normal visual inspection, Yes full ROM and Yes no lymphadenopathy Chest Chest palpation & inspection: normal inspection of the chest Resp Effort & Inspection: normal respiratory effort and able to speak in complete sentences GI Inspection: Yes normal to inspection Neuro General: patient oriented x3 and moves all extremities Cranial nerves: Yes Equal, round and reactive pupils present Cognition (Neuro): normal cognition Extrem General: Yes normal to inspection, Yes full ROM and Yes capillary refill normal Psych Appearance: grossly normal Mental Status: mental status grossly normal Affect: normal affect Attitude: cooperative Thought process: Normal thought process present Thought content: Normal thought content present Insight: Good insight present (Psych) Course Course Course Narrative: RME performed by Viviana Siddiqui PA-C. Patient is a 63 year old assigned female at presenting to the emergency department with right eye pain. Patient states that she got was getting a bottle of bleach down when some splashed into her right eye. Patient states that she got into the shower right after but it continues to burn. Detailed physical exam and review of systems are deferred to the partition notcher. Patient placed back in the waiting room pending room availability. Medications Administered Discontinued Medications Generic Name Dose Route Start Last Admin Trade Name Sarmadq PRN Reason Stop Dose Admin Lorazepam 2 mg 05/13/24 18:32 05/13/24 18:44 Lorazepam 1 Mg Tablet PO 05/13/24 18:33 2 mg ONCE ONE Administration Sodium Chloride 1,000 ml 05/13/24 18:34 05/13/24 18:44 Sodium Chloride 0.9 % Irrig 1,000 Ml Irrig.Soln IRRIGATION 05/13/24 18:35 1,000 ml ONCE ONE Administration Tetracaine HCl 1 drop 05/13/24 18:32 05/13/24 18:43 Tetracaine Hcl/Pf 0.5% Oph Rossi 4 Ml Drops EYE-LEFT 05/13/24 18:33 1 drop ONCE ONE Administration Procedures Procedure Narrative Procedure Narrative: Patient's right eye was irrigated with 1 liter of NS via a jeimy lense Medical Decision Making Medical Decision Making MDM Narrative: Patient is a 63 year old assigned female at with a history of HTN and anxiety presenting to the emergency department today with right eye pain after getting bleach in it. Patient's physical exam was as noted in the physical exam portion of this note. I explained my physical exam findings to the patient. I answered all questions asked by the patient. Patient's right eye was numbed with tetracaine and the jeimy lens was placed. Patient's right eye was irrigated with 1 liter of normal saline. Patient's right eye pH was within normal limits. I stressed the importance of the patient taking her medication as directed (either prescribed or as the over the counter packaging recommends). I stressed the importance of the patient following up with her primary care provider and an stonework tracer. I stressed the importance of the patient returning to the emergency department immediately if her symptoms were to worsen or if she were to develop any dizziness, shortness of breath, difficulty breathing, chest pain, blurry vision, loss of vision, nausea, vomiting, abdominal pain, fever, chills, back pain, or any other complaints. Patient verbalized agreement and understanding with this treatment plan and discharge. Differential Diagnosis Differential Diagnoses: The differential diagnosis associated with the presentation includes Right eye irritation Chemical burn of the right eye Right eye pain Admission/Observation Consideration of admission/observation: Escalation of care including admission/observation considered Patient would have been admitted to the hospital had her clinical presentation warranted hospital admission. Prescription Management I considered prescription management with: Antibiotic (patient prescribed a prophylactic antibiotic for the right eye given mechanism of injury) Critical Care Time Critical Care Time Critical Care Time: Yes Total Critical Care Time: 34 Attestation: I spent 34 minutes of Critical Care Time with this patient. This does not include time spent on separately reported billable procedures. Discharge Plan Discharge Clinical Impression: Eye burn Patient Disposition: Home, Self-Care Instructions: [facility] (ED) Additional Instructions: Follow up with your primary care provider and an stonework tracer. Use the antibiotic drop as directed. Return to the emergency department immediately if your symptoms worsen or if you develop any dizziness, shortness of breath, difficulty breathing, chest pain, blurry vision, loss of vision, nausea, vomiting, abdominal pain, fever, chills, back pain, or any other complaints. Prescriptions: New polymyxin B sulf-trimethoprim 10,000 unit- 1 mg/mL drops 1 drp ophthalmic (eye) QID 7 Days Qty: 10 0RF No Action (DME) pen needle, diabetic [BD Ultra-Fine Karrie Pen Needle] 32 gauge x 5/32 needle See Rx Instructions .Route Qty: 100 11RF Rx Instructions: test once daily alprazolam 0.25 mg tablet 0.25 mg PO DAILY PRN (Reason: anxiety) 30 Days Qty: 15 0RF lisinopril-hydrochlorothiazide 20-12.5 mg tablet 1 tab PO DAILY 90 Days Qty: 90 2RF Saxenda 3 mg/0.5 mL (18 mg/3 mL) pen injector 2.4 mg subcut DAILY 30 Days Qty: 12 3RF cholecalciferol (vitamin D3) 50 mcg (2,000 unit) capsule 50 mcg PO DAILY 90 Days Qty: 90 0RF rosuvastatin 5 mg tablet 5 mg PO DAILY Qty: 90 1RF tramadol 50 mg tablet 50 mg PO Q6-8H 30 Days Qty: 90 0RF cyanocobalamin (vitamin B-12) 1,000 mcg capsule 1,000 mcg PO DAILY Qty: 30 3RF (DME) blood pressure monitor [Blood Pressure Kit] Kit See Rx Instructions .ROUTE .MEDSUPPLY Qty: 1 0RF Rx Instructions: As directed prednisone 20 mg tablet 60 mg PO DAILY 3 Days Qty: 30 0RF Rx Instructions: then take 2 and half tabs daily for 3 days, then take 2 tabs daily for 3 days, then take 1 and half tabs daily for 3 days, and then take 1 tab daily for 3 days azithromycin 250 mg tablet See Rx Instructions PO .COMPLEX Qty: 6 0RF Rx Instructions: take 500 mg today (day 1), then 250 mg for 4 days (days 2-5) PO benzonatate 200 mg capsule 200 mg PO BID-TID PRN (Reason: cough) Qty: 30 0RF albuterol sulfate 90 mcg/actuation HFA aerosol inhaler 1 inh inhalation QID PRN (Reason: shortness of breath or wheezing) Qty: 8.5 0RF Referrals: Rodolfo Beltran [Physician] - (Call to establish and follow up with an air conditioning specialist. ) Sam Gann MD [Primary Care Provider] - Stand Alone Forms: Work/School Release Interventions: ED Discharge Assessment Last Done: 05/13/24 19:54 Discharge Date/Time: 05/13/24 20:00 Print Language: Other
[2024-05-13] MEDS: Tetracaine HCl/PF 0.5% Oph Sol 4 ML DROPS 1 DROP EYE-LEFT (18:43)
[2024-05-13] MEDS: SODIUM CHLORIDE 0.9% 1000 ML IRRIGATION (18:44)
[2024-05-13] MEDS: LORazepam 1 MG TABLET 2 MG PO (18:44)
[2024-05-13 19:49] VITALS: BP 117/51; PULSE 78; RESP 18; TEMP 36.9; O2SAT 96
[2024-05-13 19:54] VITALS: BP 117/51; PULSE 78; RESP 18; TEMP 36.9; O2SAT 96
== END 2024-05-13 20:00 | disposition home or self-care (01) ==
PROVIDERS: Emergency Provider Internal Medicine; PCP Internal Medicine
DX: H57.11 Ocular pain, right eye (principal); I10 Essential (primary) hypertension; T54.91XA Toxic effect of unspecified corrosive substance, accidental (unintentional), initial encounter; Y93.89 Activity, other specified; Y92.89 Other specified places as the place of occurrence of the external cause; Y99.8 Other external cause status; Z79.899 Other long term (current) drug therapy; Z87.891 Personal history of nicotine dependence
CPT/HCPCS: 99283; 99284

== ENCOUNTER 2024-07-23 09:51 | Outpatient (AMB) | payer OTHER, SELFPAY ==
[2024-07-23 09:52] VITALS: BP 112/78; PULSE 84; O2SAT 97; BMI 32.5
--- NOTE | 2024-07-23 09:52 | MHC.PC.OV ---
Vital Signs 07/23/24 09:52 Height 5 ft 1 in Weight 172 lb BMI 32.5 BP 112/78 Blood Pressure Location Lt brachial Position Sitting Pulse 84 Pulse Source Pulse Oximeter Pulse Oximetry (%) 97 Oxygen Delivery Method Room Air Intake Visit Reasons: 3mth f/u, Right side of back pain possibly due to shingles Allergies No Known Allergies Allergy (Verified 07/23/24 09:53) Tobacco use date assessed: 03/26/24 Dental Screening Dental Screen Date: 03/26/24 HPI 3mth f/u HPI Details The patient is a 63-year-old female presenting with a rash, which arose subsequent to a vacation involving prolonged sun exposure approximately one and a half weeks ago. The dermatologic lesion initially appeared on the nose, suspected to be related to sun exposure. The patient later noticed a patch on her back and was concerned it might represent shingles, a condition she has experienced previously. The back lesion developed into a blister, eventually rupturing and resolving in a manner consistent with prior experiences of shingles, though it was notable for not following a dermatomal distribution typically seen in herpes zoster. In addition, the patient has expressed concerns stemming from uncharacterized autoimmunity, following previous medical advice suggesting potential autoimmune disease due to her advanced arthritis. The patient has a documented history of elevated cholesterol levels, having stopped both cholesterol and weight loss medications due to illness prior to . She reports extreme fatigue without the presence of significant pain over the area of rash and infection. The patient was considering resuming treatment with cholesterol-lowering agents and requested a prescription for antibiotic therapy to prevent further infection. [facility] Medical History Breast cancer screening by mammogram Urinary tract infection Visual changes Bacterial infection, unspecified Shingles rash Obesity (BMI 30-39.9) Leukopenia Vitamin D deficiency Impaired glucose tolerance Hypercholesterolemia Hypertension Surgical History History of appendectomy History of plastic surgery History of right hip replacement History of shoulder surgery History of total left hip arthroplasty Family History Father No problems noted. Mother Thyroid disease Hypertension Daughter In good health Brother Thyroid disease Social History Housing: House Alcohol intake: never Patient Tobacco Use Status: Former Tobacco user Tobacco use type: Cigarette Years Smoked: 20 years old, quit now e-Cigarette/Vaping Use: Never Used Second Hand Smoke Exposure: No service: No Current occupational status: employed Cognitive needs: No Hearing needs: No Vision needs: Yes Questionnaire PHQ-9 Over the last 2 weeks, how often have you been bothered by any of the following problems? 1. Little interest or pleasure in doing things: not at all 2. Feeling down, depressed, or hopeless: not at all 3. Trouble falling or staying asleep, or sleeping too much: not at all 4. Feeling tired or having little energy: not at all 5. Poor appetite or overeating: not at all 6. Feeling bad about yourself - or that you are a failure or have let yourself or your family down: not at all 7. Trouble concentrating on things, such as reading the newspaper or watching television: not at all 8. Moving or speaking so slowly that other people could have noticed. Or the opposite - being so fidgety or restless that you have been moving around a lot more than usual: not at all 9. Thoughts that you would be better off or of hurting yourself in some way: not at all Total score: 0 Depression Screening Interpretation: Negative Depression Screening Done: Yes Source: Developed by Drs. Cruz Quiroga, Robert Navarrete and colleagues, with an educational eddie from [employer]. Thrive Questionnaire Date Thrive assessed: 03/26/24 AUDIT C Alcohol Use Questionnaire (AUDIT-C) 1. How often do you have a drink containing alcohol?: Never 3. How often do you have six or more drinks on one occasion?: Never Total Score: 0 Score Reviewed/Action Taken: Yes KUSHAL-7 AMB Questionnaire KUSHAL-7 Date KUSHAL - 7 assessed: 03/26/24 Source: Developed by Drs. Cruz Quiroga, Robert Navarrete and colleagues, with an educational eddie from [employer]. Physical exam (Primary Care) Vital Signs: Last Vital Signs Pulse 84 07/23/24 09:52 BP 112/78 07/23/24 09:52 Pulse Ox 97 07/23/24 09:52 Oxygen Delivery Method Room Air 07/23/24 09:52 BMI result Body Mass Index 32.5 Tobacco/Smoking Status: Tobacco use Status Tobacco use date assessed 03/26/24 07/23/24 10:00 Patient Tobacco Use Status Former Tobacco user 07/23/24 10:00 Tobacco use type Cigarette 07/23/24 10:00 e-Cigarette/Vaping Use Never Used 07/23/24 10:00 PHQ-9: PHQ-9 Score PHQ-9: Total score 0 07/23/24 10:32 Depression Screening Interpretation: Negative Thrive Assessment: Date of Thrive Assessment Date Thrive assessed 03/26/24 07/23/24 10:00 Const General: alert; No acute distress [facility] Head images: 1. erythermatous excoriated lesion 2 by 1 cm L side of the nose Eyes Conjunctivae: conjunctivae normal Resp Auscultation: clear to auscultation bilaterally Cardio Rate: regular rate Rhythm: regular rhythm GI Inspection: Yes normal to inspection Back/Spine/Pelvis Back/spine/pelvis image: 1. r patathoracic erythematous rash 3 by 3 cm rough surface lesion Extrem General: Yes normal to inspection and No edema Office Procedures Flu Questionnaire Does the patient have a severe egg allergy?: No Does the patient have severe life threatening allergies?: No Does the patient have a fever or illness today?: No Has the patient ever had Guillain-[place] Syndrome?: No Has the patient ever had any past reaction to a flu shot?: No Immunizations Fluarix Triv [id number] (PF) 45 mcg (15 mcg x 3)/0.5 mL IM syringe Performing Provider: Sam Gann MD [facility] [place] [facility] Administered by: Amada Jones CMA on 07/23/24 10:32 Dose Route Admin Location Dispensed Lot Number Expiration Date [facility] Pelt Salter 0.5 mL IM Left Deltoid 0.5 mL [id number] 02/04/25 [id number] [employer] VIS Given Date VIS Provided VIS Publication Date 07/23/24 Single Vaccine 21 Eligibility Eligibility Date Funding Source Not [facility] Eligible 07/23/24 Private Coding Level of Care Code Est Pt Level 4 (70220) Diagnoses Essential hypertension I10 Hypertension type: essential hypertension Hypercholesterolemia E78.00 Impaired glucose tolerance R73.02 Obesity (BMI 30-39.9) E66.9 Generalized anxiety disorder F41.1 Breast cancer screening by mammogram Z12.31 Colon cancer screening Z12.11 Skin lesion, infected L08.9 Bilateral hand pain M79.641; M79.642 Assessment & Plan Assessment & Plan (1) Hypertension: Code(s): I10 - Essential (primary) hypertension Category: Medical Qualifiers: Hypertension type: essential hypertension Qualified Code(s): I10 - Essential (primary) hypertension Plan: Continue with blood pressure medication. Decrease salt intake and exercise on lisinopril hydrochlorothiazide 20/12.5 mg once a day (2) Hypercholesterolemia: Code(s): E78.00 - Pure hypercholesterolemia, unspecified Category: Medical Plan: Avoid fried foods, chicken skin, eggs, butter margarine, pastries and meat. Be it pork or beef they have a lot of cholesterol discussion with the patient LDL goal of less than 130 and triglyceride of less than 150. (3) Impaired glucose tolerance: Code(s): R73.02 - Impaired glucose tolerance (oral) Category: Medical Plan: Decrease the amount of carbohydrate intake, pasta, bread, rice and potatoes are all sugar and that is aside from all the sweet stuff, remember that fruits are good but they are Sweet also. (4) Obesity (BMI 30-39.9): Code(s): E66.9 - Obesity, unspecified Category: Medical Plan: Diet and exercise (5) Generalized anxiety disorder: Comment: decline counselling 08/2023 Code(s): F41.1 - Generalized anxiety disorder Category: Medical Plan: Patient on alprazolam as needed. (6) Breast cancer screening by mammogram: Code(s): Z12.31 - Encounter for screening mammogram for malignant neoplasm of breast Category: Medical Plan: Patient is reminded about mammogram (7) Colon cancer screening: Code(s): Z12.11 - Encounter for screening for malignant neoplasm of colon Category: Medical Plan: Patient is reminded about colonoscopy. (8) Skin lesion, infected: Comment: Lnasal tip and R thoracic back Code(s): L08.9 - Local infection of the skin and subcutaneous tissue, unspecified Category: Medical Plan: antibiotic oral prescribed (9) Bilateral hand pain: Code(s): M79.641 - Pain in right hand; M79.642 - Pain in left hand Category: Medical Plan: xray of hand requested Plan - Prescribe oral antibiotics as preventative therapy against potential progression of the skin infection, particularly due to the patient's close contact with immunocompromised individuals. - Advise application of topical antibiotic ointments to the affected areas to prevent secondary infection. - Blood work to include sedimentation rate and C-reactive protein to assess potential underlying autoimmune processes. - Recommend continued surveillance of skin lesions, advising follow-up if the rash does not resolve or recurs. - Consider dermatology referral should the lesions persist or exhibit atypical characteristics. - X-rays ordered for both hands to evaluate arthritis progression. - Restart lipid-lowering therapy, given the patient's predisposition to hyperlipidemia. - Marketing Senior Recruiter the patient on lifestyle modifications, including diet, weight management, and increased activity levels to mitigate cardiovascular risks. - Administer influenza vaccination; shingles vaccination discussed as a future preventive measure pending patient decision. - Encourage routine preventative screenings and immunizations, including guidelines adherence for mammography and colon cancer screening. Orders: Orders Erythrocyte Sedimentation Rate Today M79.641 - Pain in right hand, M79.642 - Pain in left hand Complete Blood Count Auto Diff Today E78.00 - Pure hypercholesterolemia, unspecified Hemoglobin A1c Today E78.00 - Pure hypercholesterolemia, unspecified Lipid Panel Today E78.00 - Pure hypercholesterolemia, unspecified Influenza [id number] Immunization Today Z23 - Encounter for immunization XR hand LT 2V Today M79.641 - Pain in right hand, M79.642 - Pain in left hand XR hand RT 2V Today M79.641 - Pain in right hand, M79.642 - Pain in left hand C Reactive Protein Today M79.641 - Pain in right hand, M79.642 - Pain in left hand Comprehensive Met. Panel Today E78.00 - Pure hypercholesterolemia, unspecified Ferritin Today E78.00 - Pure hypercholesterolemia, unspecified Medications: New amoxicillin-pot clavulanate 500-125 mg (Augmentin) 1 tab PO TID 21 tabs 0RF L08.9 - Local infection of the skin and subcutaneous tissue, unspecified
--- OUTSIDE RECORDS SUMMARY | 2024-07-23 09:55 | XMS_ITS | Patient Health Record ---
Author Organization [facility] Address [address] [place] [address] Care Team Providers Care Vineyard Supervisor Name Role Phone CHRISTIAN VANEGAS Unavailable [phone] REASON FOR REFERRAL No Information MEDICATIONS Medication [...] Problem Other obesity (E66.8) Active confirmed Obesity (998792149) Problem Insomnia due to medical condition (G47.01) Active confirmed Insomnia (111692300) Problem Essential (primary) hypertension (I10) Active confirmed Essential hypertension (19524263) Problem Body mass index (BMI) 33.0-33.9, adult (Z68.33) Active confirmed Body mass ind ex 30.00 to 34.99 ([id number] ) PLAN OF TREATMENT No Information Insurance Providers Payer Name Payer Address Payer Phone Subscriber Number Group Number Insured Name Patient Relationship to Insured Coverage Start Date Coverage End Date [facility] [address] [place] [address] [id number] JEEVAN YI Self - patient is the insured MEDICAL (GENERAL) HISTORY Medical History History ICD Code hypertension, benign hyperlipidemia Surgical History Surgery Date(Month/Year) appendectomy right hip replacement right shoulder
--- OUTSIDE RECORDS SUMMARY | 2024-07-23 09:55 | XMS_ITS | Patient Health Record ---
Author Organization [facility] Address [address] [place] [address] Care Team Providers Care Sod Farmer Name Role Phone Po Sam RODAS Primary Care Provider You Cummings Jr Unavailable [phone] REASON FOR REFERRAL No Information MEDICATIONS Medication [...] screening (V76.51) Active confirmed Colon cancer screening (700647821) PLAN OF TREATMENT Future Test Test Name Order Date COLONOSCOPY 12/13/2012 Insurance Providers Payer Name Payer Address Payer Phone Subscriber Number Group Number Insured Name Patient Relationship to Insured Coverage Start Date Coverage End Date [facility] [address] [place] [address] [id number] JEEVAN YI Self - patient is the insured MEDICAL (GENERAL) HISTORY Medical History History ICD Code HTN Surgical History Surgery Date(Month/Year) Appendectomy/ruptured Plastic [id number] accident
--- OUTSIDE RECORDS SUMMARY | 2024-07-23 09:55 | XMS_ITS ---
Author Organization [facility] Address [address] [place] [phone] Care Team Providers Care Land Use Planner Name Role Phone Sam Gann MD Primary Care Provider You Cummings Jr Unavailable Encounters Encounter Location Date Provider Diagnosis [facility] [address] [place] [phone] 02/24/2023 You Malik Jr PLAN OF TREATMENT No Information
== END 2024-07-23 10:56 | disposition home or self-care (01) ==
PROVIDERS: PCP Internal Medicine; Visit Provider Internal Medicine
DX: I10 Essential (primary) hypertension (principal); E78.00 Pure hypercholesterolemia, unspecified; E66.9 Obesity, unspecified; Z68.32 Body mass index [BMI] 32.0-32.9, adult; R73.02 Impaired glucose tolerance (oral); F41.1 Generalized anxiety disorder; Z12.31 Encounter for screening mammogram for malignant neoplasm of breast; Z12.11 Encounter for screening for malignant neoplasm of colon; L08.9 Local infection of the skin and subcutaneous tissue, unspecified; M79.641 Pain in right hand; M79.642 Pain in left hand; Z23 Encounter for immunization

== ENCOUNTER → 2024-07-23 09:51 | Outpatient (BNVA) | payer OTHER, SELFPAY | PROVIDERS: PCP Internal Medicine; Visit Provider Internal Medicine | DX: M54.9 Dorsalgia, unspecified (principal); L08.9 Local infection of the skin and subcutaneous tissue, unspecified; I10 Essential (primary) hypertension; E78.00 Pure hypercholesterolemia, unspecified; R73.02 Impaired glucose tolerance (oral); E66.9 Obesity, unspecified; F41.1 Generalized anxiety disorder; M79.641 Pain in right hand; M79.642 Pain in left hand; Z12.31 Encounter for screening mammogram for malignant neoplasm of breast; Z68.32 Body mass index [BMI] 32.0-32.9, adult | CPT/HCPCS: 90471; 90656; 96127; 99212 ==

== ENCOUNTER 2024-12-21 10:49 | Outpatient (REF) | payer OTHER, SELFPAY ==
--- NOTE | ~2024-12-21 | XR_ITS ---
EXAMINATION: XR HAND 3 OR MORE VIEWS LEFT HISTORY: Pain in left hand. COMPARISON: There are no prior studies available for comparison. FINDINGS: Three views of the left hand are submitted. The bones are osteopenic. There is no fracture or dislocation. There is mild osteoarthritis of the DIP joints space narrowing and osteophyte formation. Moderate degenerative changes are noted involving the 1st carpometacarpal joint. The soft tissues are unremarkable. XR/XR hand LT min 3V IMPRESSION: Osteoarthritis of the left hand as described. Electronically signed by: Cruz Maldonado MD 12/21/2024 12:39 PM EDT
--- NOTE | ~2024-12-21 | XR_ITS ---
EXAMINATION: XR HAND 3 OR MORE VIEWS RIGHT HISTORY: M79.641 - Pain in right hand COMPARISON: There are no prior studies available for comparison. FINDINGS: Three views of the right hand are submitted. The bones are osteopenic. There is no fracture or dislocation. There is mild osteoarthritis of the DIP joints of the index and middle fingers and the interphalangeal joint of the thumb. Narrowing of the 1st carpometacarpal joint. The soft tissues are unremarkable. XR/XR hand RT min 3V IMPRESSION: Degenerative changes of the right hand as described. Electronically signed by: Cruz Maldonado MD 12/21/2024 12:40 PM EDT
--- OUTSIDE RECORDS SUMMARY | 2024-12-21 11:21 | XMS_ITS | Patient Health Record ---
Author Organization [facility] Address [address] [place] [address] Care Team Providers Care Truss Assembler Name Role Phone Po Sam RODAS Primary Care Provider You Cummings Jr Unavailable Reason For Referral No Information Medications Medication SIG (Take, Route, Frequency, Duration) Notes Start Date End Date Status Colyte with Flavor Packs 240 GM As directed Orally Over the specified time. for 1 day(s) 12/13/2012 08/08/2024 Active Lisinopril Active traMADol HCl Active Zolpidem Tartrate Ac tive Vitamin D Active Problems Problem Type SNOMED Code ICD Code Onset Dates Problem Status W/U Status Risk Notes Problem Colon cancer screening (V76.51) Active confirmed Plan Of Treatment Future Test Test Name Order Date COLONOSCOPY 12/13/2012 Insurance Providers Payer Name Payer Address Payer Phone Subscriber Number Group Number Insured Name Patient Relationship to Insured Coverage Start Date Coverage End Date [facility] [address] [place] [address] [id number] JEEVAN YI Self - patient is the insured Medical (General) History Medical History History ICD Code HTN Surgical History Surgery Date(Month/Year) Appendectomy/ruptured Plastic [id number] accident
[2024-12-21 13:13] LABS: MANUAL DIFF FLAG NO
[2024-12-21 13:21] LABS: Basophils Percent Auto 0.5 % (0-2); Eosinophils Percent Auto 0.5 % (0-4); Hematocrit 42.9 % (37.0-47.0); Hemoglobin 14.9 g/dl (12.0-16.0); Imm Gran Abs Auto 0.01 X10*3/uL (0.00-0.03); Imm Gran Pct Auto 0.3 % (0.0-0.4); Lymphocytes Absolute Auto 1.4 X10*3/uL (1.2-4.9); Lymphocytes Percent Auto 35.8 % (20-40); Mean Corpuscular HGB Conc 34.7 g/dl (31.0-35.0); Mean Corpuscular Hemoglobin 32.1 pg (27.0-33.0); Mean Corpuscular Volume 92.5 fL (80.0-98.0); Mean Platelet Volume 11.7 fL (9.4-12.3); Monocytes Absolute Auto 0.4 X10*3/uL (0.1-1.2); Monocytes Percent Auto 10.1 % (2-11); Neutrophils Percent Auto 52.8 % (45-73); Platelet Count 187 X10*3/uL (160-400); Red Blood Count 4.64 X10*6/uL (4.20-5.50); Red Cell Distribution Width 12.6 % (11.0-16.0); White Blood Count 3.8 X10*3/uL (4.8-10.8)
[2024-12-21 13:26] LABS: Estimated Average Glucose 105 mg/dL; Hemoglobin A1C 136.2418 umol/L; Hemoglobin A1c % 5.3 % (<6.0); Total Hemoglobin (HGBA1C) 3929.9975 umol/L
[2024-12-21 14:06] LABS: Alanine Aminotransferase 13 U/L (0-31); Albumin Level 4.1 g/dL (3.5-5.0); Alkaline Phosphatase 72 U/L (39-117); Anion Gap 12 (12-20); Aspartate Amino Transferase 20 U/L (5-31); Bilirubin Total 0.7 mg/dL (0.0-1.0); Blood Urea Nitrogen 18 mg/dL (9-16); C Reactive Protein 0.14 mg/dL (< or = 0.50); Carbon Dioxide 25 mmol/L (22-29); Chloride 105 mmol/L (96-108); Cholesterol 266 mg/dL (<200); Estimated Glomerular Filt Rate > 60; Ferritin 136 ng/mL (10-250); Glucose Random 95 mg/dL (60-115); HDL Cholesterol 67 mg/dL (>40); LDL Cholesterol Calculated 184 mg/dL (<100); Potassium 4.3 mmol/L (3.3-5.1); Sodium 138 mmol/L (135-145); Total Protein 6.9 g/dL (6.5-8.0); Triglycerides 79 mg/dL (<150)
[2024-12-21 14:12] LABS: Erythrocyte Sedimentation Rate 5 MM/HR (0-20)
== END 2024-12-21 10:50 | disposition home or self-care (01) ==
LOC: HO.HMGCX 10:49
PROVIDERS: PCP Internal Medicine; Visit Provider Internal Medicine
DX: M79.641 Pain in right hand (principal); M79.642 Pain in left hand; E78.00 Pure hypercholesterolemia, unspecified
CPT/HCPCS: 36415; 73130; 80053; 80061; 82728; 83036; 85025; 85652; 86140

== ENCOUNTER → 2024-12-21 11:01 | Outpatient (BNV) | payer OTHER, SELFPAY | PROVIDERS: PCP Internal Medicine; Visit Provider Radiology Diagnostic Radiology | DX: M19.041 Primary osteoarthritis, right hand (principal); M19.042 Primary osteoarthritis, left hand | CPT/HCPCS: 73130 ==

== ENCOUNTER 2024-12-24 14:21 | Outpatient (AMB) | payer OTHER, SELFPAY ==
[2024-12-24 14:28] VITALS: BP 124/80; PULSE 97; O2SAT 96; BMI 30.6
--- NOTE | 2024-12-24 14:28 | A.OFFPC_ITS ---
Vital Signs 12/24/24 14:28 Height 5 ft 1 in Weight 162 lb BMI 30.6 BP 124/80 Blood Pressure Location Lt brachial Position Sitting Pulse 97 Pulse Source Pulse Oximeter Pulse Oximetry (%) 96 Oxygen Delivery Method Room Air Intake Visit Reasons: Annual Exam Allergies No Known Allergies Allergy (Verified 12/24/24 14:29) Medication List - Last Reconciled 12/24/24 by Sam Gann MD alprazolam 0.25 mg PO DAILY PRN 30 days blood pressure monitor (Blood Pressure Kit) As directed cholecalciferol (vitamin D3) 50 mcg PO DAILY 90 days cyanocobalamin (vitamin B-12) 1,000 mcg PO DAILY lisinopril-hydrochlorothiazide 20-12.5 mg 1 tab PO DAILY 90 days pen needle, diabetic (BD Ultra-Fine Karrie Pen Needle) test once daily tirzepatide (weight loss) 5 mg (0.5 mL) subcut QWEEK 4 weeks tramadol 50 mg PO Q6-8H 30 days Tobacco use date assessed: 12/24/24 Fall risk assessment: No Falls in past year Last assessed Fall Risk: 12/24/24 Dental Screening Dental Screen Date: 12/24/24 Did you have a dental visit in the last 12 months?: Yes Did you have a dental problem in the last 6 months where you did not have access to dental care?: No Was dental information given to patient?: Patient has dentist HPI Annual Exam HPI Details occ nausea PFSH Medical History (Updated 12/24/24 @ 15:21 by Sam Gann MD) Bilateral hand pain Breast cancer screening by mammogram Urinary tract infection Visual changes Bacterial infection, unspecified Shingles rash Obesity (BMI 30-39.9) Leukopenia Vitamin D deficiency Impaired glucose tolerance Hypercholesterolemia Hypertension Surgical History History of appendectomy History of plastic surgery History of right hip replacement History of shoulder surgery History of total left hip arthroplasty Family History Father No problems noted. Mother Thyroid disease Hypertension Daughter In good health Brother Thyroid disease Social History (Updated 12/24/24 @ 15:07 by Sam Gann MD) Housing: House Alcohol intake: never Comment: once q 2 months 1-2 drinks Patient Tobacco Use Status: Former Tobacco user Tobacco use type: Cigarette Years Smoked: 20 years old, quit now e-Cigarette/Vaping Use: Never Used Second Hand Smoke Exposure: No service: No Current occupational status: employed Cognitive needs: No Hearing needs: No Vision needs: Yes Questionnaire PHQ-9 Over the last 2 weeks, how often have you been bothered by any of the following problems? 1. Little interest or pleasure in doing things: not at all 2. Feeling down, depressed, or hopeless: not at all 3. Trouble falling or staying asleep, or sleeping too much: several days 4. Feeling tired or having little energy: several days 5. Poor appetite or overeating: not at all 6. Feeling bad about yourself - or that you are a failure or have let yourself or your family down: not at all 7. Trouble concentrating on things, such as reading the newspaper or watching television: not at all 8. Moving or speaking so slowly that other people could have noticed. Or the opposite - being so fidgety or restless that you have been moving around a lot more than usual: not at all 9. Thoughts that you would be better off or of hurting yourself in some way: not at all Total score: 2 Depression Screening Interpretation: Positive Depression Screening Done: Yes 36893 - PHQ-9 Billing: Yes Source: Developed by Drs. Cruz Quiroga, Lacey Ca, Robert Raya and colleagues, with an educational eddie from [employer]. Thrive Questionnaire Date Thrive assessed: 12/20/24 I am a: Patient What is your living situation today?: I have a steady place to live Within the past 12 months, did the food you bought not last and you didn't have the money to get more?: I choose not to answer this question Within the past 12 months, did you worry whether your food would run out before you got money to buy more?: I choose not to answer this question Do you have trouble paying for medicines?: I choose not to answer this question Do you have trouble getting transportation to medical appointments?: No Do you have trouble paying your heating and electricity bill?: No Do you have trouble taking care of your child, family member or friend?: No Do you have trouble with day-to-day activities such as bathing, preparing meals, shopping, managing finances, etc.?: No Are you currently unemployed and looking for a job?: No Are you interested in more education?: No Please select the resources that you would like help with: None Currently or been in a relationship where the following occur: No concerns reported THRIVE Score: 0 AUDIT C Alcohol Use Questionnaire (AUDIT-C) 1. How often do you have a drink containing alcohol?: Monthly or less 2. How many drinks containing alcohol do you have on a typical day when you are drinking?: 1 or 2 3. How often do you have six or more drinks on one occasion?: Never Total Score: 1 KUSHAL-7 AMB Questionnaire KUSHAL-7 Date KUSHAL - 7 assessed: 12/24/24 Feeling nervous, anxious, or on edge: 1 = Several days Not being able to stop or control worryin = Not at all Worrying too much about different things: 0 = Not at all Trouble relaxin = Not at all Being so restless that it is hard to sit still: 0 = Not at all Becoming easily annoyed or irritable: 0 = Not at all Feeling afraid as if something awful might happen: 0 = Not at all Total KUSHAL-7 score (0-4 normal; 5-9 mild; 10-14 moderate; 15-21 severe): 1 Source: Developed by Drs. Cruz Quiroga, Lacey Ca, Robert Raya and colleagues, with an educational eddie from [employer]. KUSHAL-7 Assessment Billing KUSHAL-7 Assessment Tool: KUSHAL-7 Assessment 14138 Review of Systems Const Denies poor appetite and Denies weakness Eyes Denies no additional complaints ENT Reports Normal hearing present, Denies dizziness, Denies nasal congestion, Denies tinnitus and Denies sore throat Card Denies chest pain, Denies syncope, Denies rapid heart rate and Denies dyspnea Resp Denies cough and Denies dyspnea GI Denies change in stool character, Reports constipation, Denies diarrhea, Denies nausea and Denies vomiting Denies urinary frequency, Denies difficulty voiding and Denies dysuria Neuro Reports Normal hearing present, Denies confusion, Denies dizziness, Denies syncope and Denies weakness Psych Denies confusion Physical exam (Primary Care) Vital Signs: Last Vital Signs Pulse 97 12/24/24 14:28 BP 124/80 12/24/24 14:28 Pulse Ox 96 12/24/24 14:28 Oxygen Delivery Method Room Air 12/24/24 14:28 BMI result Body Mass Index 30.6 Tobacco/Smoking Status: Tobacco use Status Tobacco use date assessed 12/24/24 12/24/24 14:30 Patient Tobacco Use Status Former Tobacco user 12/24/24 15:07 Tobacco use type Cigarette 12/24/24 15:07 e-Cigarette/Vaping Use Never Used 12/24/24 15:07 PHQ-9: PHQ-9 Score PHQ-9: Total score 2 12/24/24 15:08 Depression Screening Interpretation: Positive Thrive Assessment: Date of Thrive Assessment Date Thrive assessed 12/20/24 12/24/24 14:30 Currently or been in a relationship where the following occur: No concerns reported Const General: No confusion Orientation/consciousness: No confusion HENMT Head: Yes normocephalic Ears: external ears normal and TM's normal bilaterally Face and sinus: Yes normal facial exam Mouth: moist mucous membranes Throat: Yes tonsils normal Eyes Conjunctivae: conjunctivae normal Pupils: Equal, round and reactive pupils present and Pupil accommodation reflex normal Direct Ophthalmoscopy: normal light reflex Neck Neck: No lymphadenopathy Thyroid: Thyroid normal Chest Chest palpation & inspection: normal inspection of the chest Resp Effort & Inspection: normal respiratory effort and no audible wheezes Auscultation: clear to auscultation bilaterally, no crackles, no wheezes and l dave sounds not diminished Cardio Rate: regular rate Rhythm: regular rhythm Peripheral pulses: radial pulses present and dorsalis pedis present GI Palpation (GI): no masses Auscultation: normal bowel sounds and normoactive bowel sounds Rectal Exam - Female: deferred Skin General skin exam: no rashes or lesions noted Rashes: no rashes Neuro General: No confusion Cranial nerves: Yes Equal, round and reactive pupils present and Yes Normal hearing present Cognition (Neuro): normal cognition Gait exam (Neuro): Normal gait present Motor exam (neuro): 5/5 motor strength present throughout Deep tendon reflexes (DTR's): Right brachioradialis reflex intensity grade: 2+, Left brachioradialis reflex intensity grade: 2+, Right patellar reflex intensity grade: 2+ and Left patellar reflex intensity grade: 2+ Extrem General: No edema Coding Level of Care Code Est Pt Prev Care 40-64y(38401) Diagnoses Annual physical exam Z00.00 Essential hypertension I10 Hypertension type: essential hypertension Hypercholesterolemia E78.00 Impaired glucose tolerance R73.02 Obesity (BMI 30-39.9) E66.9 Generalized anxiety disorder F41.1 Breast cancer screening by mammogram Z. Colon cancer screening Z12.11 Eczema L30.9 Additional Codes KUSHAL-7 Assessment Billing - KUSHAL-7 Assessment Tool: KUSHAL-7 Assessment 04652 ([id number]) PHQ-9 - 48191 - PHQ-9 Billing: Yes ([id number]) Assessment & Plan Assessment & Plan (1) Annual physical exam: Code(s): Z00.00 - Encounter for general adult medical examination without abnormal findings Category: Medical Plan: Patient is advised to eat healthy, keep well hydrated, keep active and have adequate sleep. (2) Hypertension: Code(s): I10 - Essential (primary) hypertension Category: Medical Qualifiers: Hypertension type: essential hypertension Qualified Code(s): I10 - Essential (primary) hypertension Plan: Continue with blood pressure medication. Decrease salt intake and exercise on lisinopril hydrochlorothiazide 2011. (3) Hypercholesterolemia: Code(s): E78.00 - Pure hypercholesterolemia, unspecified Category: Medical Plan: Avoid fried foods, chicken skin, eggs, butter margarine, pastries and meat. Be it pork or beef they have a lot of cholesterol LDL goal of less than 130 and triglyceride of less than 150. On rosuvastatin 5 mg once a day (4) Impaired glucose tolerance: Code(s): R73.02 - Impaired glucose tolerance (oral) Category: Medical Plan: Decrease the amount of carbohydrate intake, pasta, bread, rice and potatoes are all sugar and that is aside from all the sweet stuff, remember that fruits are good but they are Sweet also. (5) Obesity (BMI 30-39.9): Code(s): E66.9 - Obesity, unspecified Category: Medical Plan: Diet and exercise (6) Generalized anxiety disorder: Comment: decline counselling 08/2023 Code(s): F41.1 - Generalized anxiety disorder Category: Medical Plan: Continue with present medication as needed (7) Breast cancer screening by mammogram: Code(s): Z08.07 - Encounter for screening mammogram for malignant neoplasm of breast Category: Medical Plan: Reminded about mammogram (8) Colon cancer screening: Code(s): Z12.11 - Encounter for screening for malignant neoplasm of colon Category: Medical Plan: Reminded about colon cancer screening (9) Eczema: Comment: R mid back and R thigh Code(s): L30.9 - Dermatitis, unspecified Category: Medical Plan History of Present Illness The patient is a 64-year-old female presenting with the intent to undergo a wellness visit and physical examination. She notes a recent unexplained ten- pound weight loss while having a history of obesity, which is under current observation. She reports having essential hypertension, being treated with lisinopril-hydrochlorothiazide, alongside managing dyslipidemia with rosuvastatin given that her LDL cholesterol level was significantly high at 184 mg/dL. Her impaired glucose tolerance necessitates a continued focus on diet and physical activity strategies as part of her ongoing care. The patient's history of anxiety disorders is recognized, and prior hand x-rays have indicated degenerative joint disease. She is due for preventive screenings including a colonoscopy, mammogram, and bone density evaluation, reflecting ongoing attention to her broader health management. Health Maintenance - Colonoscopy is due - Mammogram is due - Bone density test is due - Cholesterol management targeting an LDL level less than 130 mg/dL and triglyceride level less than 150 mg/dL - Continued adherence to diet and exercise plan for impaired glucose tolerance - Medication regimen includes lisinopril-hydrochlorothiazide for hypertension and rosuvastatin for hypercholesterolemia Social History - Not specifically addressed in the conversation Review of Systems - General: Establishes a 10-pound weight loss, no specific timeline mentioned - Cardiovascular: Reports history of hypertension - Endocrine: Reports impaired glucose tolerance - Psychiatric: Reports generalized anxiety disorder Physical Exam General: Cooperative, healthy appearing, comfortable, no acute distress and well developed Orientation: Patient oriented x3 Limitations: No limitations Head: Normal to inspection Ears: Hearing grossly normal bilaterally Nose: Normal external nose present Face and sinus: Normal facial exam Eyes: Appearance normal, both eyes and all related structures Neck: Normal visual inspection and Yes full ROM Respiratory: Normal respiratory effort and able to speak in complete sentences. Clear to auscultation bilaterally Cardiovascular: Regular rate and rhythm. Normal S1 and S2 GI: Normal to inspection. Soft to palpation and nontender Skin: No rashes or lesions noted Neuro: Patient oriented x3 Extremities: Normal to inspection Results - Labs: Normal blood count with mild leukopenia, normal electrolytes, renal function, blood sugar, iron test, and liver function tests. LDL cholesterol 184 mg/dL noted as high - Imaging: Prior hand x-rays show degenerative changes Plan I have addressed multiple aspects concerning the patient's health status in this visit. Her essential hypertension will continue to be managed with lisinopril- hydrochlorothiazide. For hypercholesterolemia, I aim to reduce her LDL cholesterol, and will continue rosuvastatin 5 mg daily. For impaired glucose tolerance, she will maintain adherence to dietary and exercise protocols already established. The patient?s current regimen will also focus on surveillance and the upcoming screening tests due, including colonoscopy, mammogram, and bone density scans as essential preventative measures. Monitoring will occur through future consultations, building upon her existing health orientations and responsibilities. Patient was informed and verbally consented to the use of an ambient scribe for clinic note documentation during this visit. Discussion Notes I discussed with the patient the importance of maintaining her current management plans, noting her elevated LDL and the necessity for her medication regimen at present levels. The discussions on her high cholesterol involved examining the benefits and associated risks of ongoing rosuvastatin use, reiterating a goal LDL level below 130 mg/dL. With her condition of impaired glucose tolerance, I emphasized the benefit of diet and exercise continuation. We reviewed her mild leukopenia, which requires regular observation but no immediate action. Preventive screenings are emphasized as a measure to maintain health vigilance, with reminders for timely colonoscopy, bone density, and breast assessments discussed. I have provided anticipatory instructions should any symptoms necessitate earlier intervention and advised continuous follow-up adherence. Patient Instructions - Maintain current medication regimen as prescribed - Continue diet and exercise plan to manage cholesterol and glucose levels - Schedule preventive screenings such as a colonoscopy, mammogram, and bone density test - Report any concerning symptoms or significant health changes promptly - Adhere to follow-up appointments as recommended Orders: Orders Hemoglobin A1c 3 Months E78.00 - Pure hypercholesterolemia, unspecified MM tomosynthesis screening BI Today Z12.31 - Encounter for screening mammogram for malignant neoplasm of breast Comprehensive Met. Panel 3 Months E78.00 - Pure hypercholesterolemia, unspecified Lipid Panel 3 Months E78.00 - Pure hypercholesterolemia, unspecified Magnesium 3 Months Z12.11 - Encounter for screening for malignant neoplasm of colon Referrals Dermatology Referral L30.9 - Dermatitis, unspecified Gastroenterology Referral Z12.11 - Encounter for screening for malignant neoplasm of colon Medications: New triamcinolone acetonide 0.5% 1 appl topical BID 30 grams 0RF L30.9 - Dermatitis, unspecified Refilled rosuvastatin 5 mg PO DAILY 90 tabs 1RF E78.00 - Pure hypercholesterolemia, unspecified
--- OUTSIDE RECORDS SUMMARY | 2024-12-24 14:31 | XMS_ITS | Patient Health Record ---
Author Organization [facility] Address [address] [place] [address] Care Team Providers Care Pullman Conductor Name Role Phone Po Sam RODAS Primary [...] Insured Coverage Start Date Coverage End Date [facility] [address] [place] [address] [id number] JEEVAN YI Self - patient is the insured Medical (General) History Medical History History ICD Code HTN Surgical History Surgery Date(Month/Year) Appendectomy/ruptured Plastic [id number] accident
== END 2024-12-24 15:27 | disposition home or self-care (01) ==
LOC: HO.HMCH 14:22
PROVIDERS: PCP Internal Medicine; Visit Provider Internal Medicine
DX: Z00.00 Encounter for general adult medical examination without abnormal findings (principal); E66.9 Obesity, unspecified; Z68.30 Body mass index [BMI] 30.0-30.9, adult; I10 Essential (primary) hypertension; E78.00 Pure hypercholesterolemia, unspecified; R73.02 Impaired glucose tolerance (oral); F41.1 Generalized anxiety disorder; Z12.31 Encounter for screening mammogram for malignant neoplasm of breast; Z12.11 Encounter for screening for malignant neoplasm of colon; L30.9 Dermatitis, unspecified

== ENCOUNTER → 2024-12-24 14:21 | Outpatient (BNVA) | payer OTHER, SELFPAY | PROVIDERS: PCP Internal Medicine; Visit Provider Internal Medicine | DX: Z00.00 Encounter for general adult medical examination without abnormal findings (principal); I10 Essential (primary) hypertension; E78.00 Pure hypercholesterolemia, unspecified; R73.02 Impaired glucose tolerance (oral); E66.9 Obesity, unspecified; Z68.30 Body mass index [BMI] 30.0-30.9, adult; F41.1 Generalized anxiety disorder; L30.9 Dermatitis, unspecified; Z79.899 Other long term (current) drug therapy | CPT/HCPCS: 96127; 99396 ==

== ENCOUNTER 2025-02-05 15:19 | Outpatient (AMB) | payer OTHER, SELFPAY ==
[2025-02-05 15:29] VITALS: BP 124/80; PULSE 78; TEMP 37.1; O2SAT 98; BMI 31.0
--- NOTE | 2025-02-05 15:29 | AM.OFFWIN_ITS ---
Intake Vital Signs 02/05/25 15:29 Height 5 ft 1 in Weight 164 lb BMI 31.0 BP 124/80 Blood Pressure Location Lt brachial Position Sitting Pulse 78 Pulse Source Pulse Oximeter Temp 98.7 F Temp Source Oral Pulse Oximetry (%) 98 Oxygen Delivery Method Room Air Intake Visit Reasons: EP-whole body poison devika Intake Note: pt presents with rash to hands, wrists, upper chest and newly spreading to face x3 days Patient Tobacco Use Status: Former Tobacco user Allergies No Known Allergies Allergy (Verified 02/05/25 15:31) Do you need a note to return to daycare/school/sports/work: No HPI HPI Comments History of Present Illness Details History - The patient is a 64-year-old female pr esenting with allergic reaction due to poison devika. - The rash began on Tuesday and has bee n worsening, spreading to the face. - The patient is highly allergic to pois on devika and has experienced similar reactions in the past. - Current treatment includes Benadryl an d triamcinolone cream, with a history of using prednisone tablets for severe reactions. - The patient denies any respiratory sym ptoms or shortness of breath. - She has no new lotions, soaps, deterge nts, foods, clothes, medications, pets, bites, or travel. - She denies fever, chills, CP, SOB, abd pain, n/v/d, joint pain, wheezing. Physical Exam General: Cooperative, healthy appearing, comfortable, no acute distress and well developed Orientation: Patient oriented x3 Mouth: normal, moist oral mucosa Neck: Normal visual inspection and Yes full ROM Respiratory: Normal respiratory effort and able to speak in complete sentences. Clear to auscultation bilaterally. No w/r/r noted. Cardiovascular: RRR, no m/r/g noted. Normal S1 and S2 Skin: Diffuse, erythematous, raised, fluid filled lesions noted on the forearm, chest, neck, and upper arms. Patient was informed and verbally consented to the use of an ambient scribe for clinic note documentation during this visit [facility] Medical History (Updated 12/24/24 @ 15:21 by Sam Gann MD) Bilateral hand pain Breast cancer screening by mammogram Urinary tract infection Visual changes Bacterial infection, unspecified Shingles rash Obesity (BMI 30-39.9) Leukopenia Vitamin D deficiency Impaired glucose tolerance Hypercholesterolemia Hypertension Surgical History History of appendectomy History of plastic surgery History of right hip replacement History of shoulder surgery History of total left hip arthroplasty Family History Father No problems noted. Mother Thyroid disease Hypertension Daughter In good health Brother Thyroid disease Social History (Updated 12/24/24 @ 15:07 by Sam Gann MD) Housing: House Alcohol intake: never Comment: once q 2 months 1-2 drinks Patient Tobacco Use Status: Former Tobacco user Tobacco use type: Cigarette Years Smoked: 20 years old, quit now e-Cigarette/Vaping Use: Never Used Second Hand Smoke Exposure: No service: No Current occupational status: employed Cognitive needs: No Hearing needs: No Vision needs: Yes Review of Systems Const All systems reviewed & are unremarkable except as noted in HPI and below Physical Exam Vital Signs: Last Vital Signs Temp 98.7 F 02/05/25 15:29 Pulse 78 02/05/25 15:29 BP 124/80 02/05/25 15:29 Pulse Ox 98 02/05/25 15:29 Oxygen Delivery Method Room Air 02/05/25 15:29 BMI result Body Mass Index 31.0 Assessment & Plan Assessment & Plan (1) Poison devika: Code(s): L23.7 - Allergic contact dermatitis due to plants, except food Plan Most likely allergic Contact Dermatitis Due To Poison Devika Plan - Prescribe Zyrtec to manage histamine response and reduce symptoms. - Initiate a prednisone taper to manage severe dermatitis and prevent further spread. - Oatmeal baths - Betamethasone cream to the areas BID - can use calamine lotion as well - Advise the patient to avoid further exposure to poison devika and monitor for any worsening symptoms. Medications: New betamethasone dipropionate 0.05% 1 appl topical DAILY PRN 45 grams 0RF skin irritation 7 days cetirizine 10 mg PO DAILY PRN 30 tabs 0RF allergy symptoms 30 days prednisone see taper instructions 10 mg PO DIRECTED 1 packet 0RF Coding Level of Care Code Est Pt Level 3 (00293) Diagnoses Poison devika L23.7
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
== END 2025-02-05 15:54 | disposition home or self-care (01) ==
PROVIDERS: Visit Provider Physician Assistant Medical
DX: L23.7 Allergic contact dermatitis due to plants, except food (principal)

== ENCOUNTER → 2025-02-05 15:19 | Outpatient (BNVA) | payer OTHER, SELFPAY | PROVIDERS: Visit Provider Physician Assistant Medical | DX: L23.7 Allergic contact dermatitis due to plants, except food (principal) | CPT/HCPCS: 99212 ==

== ENCOUNTER 2025-04-12 14:46 | Outpatient (REF) | payer OTHER, SELFPAY ==
--- NOTE | ~2025-04-12 | MM_ITS ---
EXAMINATION: MM SCREENING DIGITAL BREAST TOMOSYNTHESIS, BILATERAL CLINICAL INFORMATION: Screening. Asymptomatic. COMPARISON: Mammography: Comparison is made with available priors TECHNIQUE: Digital breast mammography with tomosynthesis is performed in both the craniocaudal and mediolateral oblique views along with computer-aided detection (CAD). FINDINGS: There are scattered areas of fibroglandular density (ACR BI-RADS breast composition Category b). There are no significant masses, abnormal calcifications, or other abnormalities. MM/MM tomosynthesis screening BI IMPRESSION: No mammographic evidence of malignancy. ASSESSMENT: BI-RADS BI-RADS 1 - Negative RECOMMENDATION: Routine annual mammography screening. 1 year F/U This examination should not preclude the clinical evaluation of a suspicious palpable abnormality. This patient's information was entered into a reminder system with a target due date for their next mammogram. Electronically signed by: Chrissy Lozano DO 04/16/2025 10:05 AM TRISTAN
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
== END 2025-04-12 14:47 | disposition home or self-care (01) ==
LOC: HO.MAMMO 14:46
PROVIDERS: PCP Internal Medicine; Visit Provider Internal Medicine
DX: Z12.31 Encounter for screening mammogram for malignant neoplasm of breast (principal)
CPT/HCPCS: 77063; 77067

== ENCOUNTER → 2025-04-12 15:00 | Outpatient (BNV) | payer OTHER, SELFPAY | PROVIDERS: PCP Internal Medicine; Visit Provider Internal Medicine | DX: Z12.31 Encounter for screening mammogram for malignant neoplasm of breast (principal) | CPT/HCPCS: 77063; 77067 ==

== ENCOUNTER 2025-06-22 10:25 | Outpatient (REF) | payer OTHER, SELFPAY ==
[2025-06-22 11:46] LABS: Alanine Aminotransferase 15 U/L (0-31); Albumin Level 4.3 g/dL (3.5-5.0); Alkaline Phosphatase 75 U/L (39-117); Anion Gap 13 (12-20); Aspartate Amino Transferase 21 U/L (5-31); Blood Urea Nitrogen 19 mg/dL (9-16); Calcium 9.8 mg/dL (8.4-10.2); Carbon Dioxide 25 mmol/L (22-29); Chloride 109 mmol/L (96-108); Cholesterol 171 mg/dL (<200); Estimated Glomerular Filt Rate > 60; HDL Cholesterol 71 mg/dL (>40); Magnesium 2.2 mg/dL (1.6-2.6); Potassium 4.7 mmol/L (3.3-5.1); Sodium 142 mmol/L (135-145); Total Protein 6.7 g/dL (6.5-8.0); Triglycerides 73 mg/dL (<150)
== END 2025-06-22 10:26 | disposition home or self-care (01) ==
LOC: HO.LAB 10:25
PROVIDERS: PCP Internal Medicine; Visit Provider Internal Medicine
DX: Z12.11 Encounter for screening for malignant neoplasm of colon (principal); E78.00 Pure hypercholesterolemia, unspecified
CPT/HCPCS: 36415; 80053; 80061; 83036; 83735

== ENCOUNTER 2025-06-26 12:48 | Outpatient (AMB) | payer OTHER, SELFPAY ==
[2025-06-26 13:02] VITALS: BP 110/80; PULSE 99; TEMP 36.4; O2SAT 84; BMI 29.3
--- NOTE | 2025-06-26 13:02 | MHC.PC.OV ---
Vital Signs 06/26/25 13:02 06/26/25 13:31 Height 5 ft 1 in Weight 155 lb BMI 29.3 BP 110/80 100/70 Blood Pressure Location Lt brachial Lt brachial Position Sitting Sitting Pulse 99 Pulse Source Pulse Oximeter Temp 97.6 F Temp Source Temporal Artery Scan Pulse Oximetry (%) 84 L Oxygen Delivery Method Room Air Intake Visit Reasons: 3M Follow up Allergies No Known Allergies Allergy (Verified 02/05/25 15:31) Medication List - Last Reconciled 06/26/25 by Sam Gann MD blood pressure monitor (Blood Pressure Kit) As directed cholecalciferol (vitamin D3) 50 mcg PO DAILY 90 days cyanocobalamin (vitamin B-12) 1,000 mcg PO DAILY lisinopril-hydrochlorothiazide 20-12.5 mg 1 tab PO DAILY 90 days pen needle, diabetic (BD Ultra-Fine Karrie Pen Needle) test once daily tirzepatide (weight loss) 7.5 mg (0.5 mL) subcut QWEEK 4 weeks tramadol 50 mg PO Q6-8H triamcinolone acetonide 0.5% 1 appl topical BID Tobacco use date assessed: 12/24/24 Fall risk assessment: No Falls in past year Last assessed Fall Risk: 06/26/25 Dental Screening Dental Screen Date: 12/24/24 HPI HPI Comments History of Present Illness Details History of Present Illness The patient is a 64-year-old overweight female presenting for a follow-up visit. Her medical history is significant for hypertension, hypercholesterolemia, impaired glucose tolerance, and generalized anxiety disorder. She has achieved a 9-pound weight loss. In February 2025, she had an urgent care visit for allergic contact dermatitis, for which she was treated with prednisone, cetirizine, and a steroid cream. She is no longer taking prednisone or cetirizine. Regarding health maintenance, her last colonoscopy was in 2012 and she is due for another. Her next mammogram is due in April 2025, and her last bone density scan was in February 2020. Blood work from December showed a normal blood count with mild leukopenia, which has been a chronic finding. More recent labs showed normal electrolytes, renal function, blood sugar, and liver function, with a significant improvement in her cholesterol panel; her total cholesterol dropped to 171 and LDL to 86. Her current medications include vitamin D, vitamin B12, lisinopril/HCTZ, and rosuvastatin. She also takes tramadol for arthritis pain affecting multiple joints, especially her fingers, and a weekly injection of tirzepatide 7.5 mg for weight management and impaired glucose tolerance. Health Maintenance A referral will be placed for a colonoscopy, as she is past due. The patient consented to and will receive an influenza vaccine during the visit. The risks and benefits of the shingles vaccine were discussed. A follow-up appointment is recommended in approximately three months. Social History - Exercise: Patient reports doing as much physical activity as she can. - Insurance: Patient is concerned about potentially losing insurance coverage for tirzepatide in August. Results - CBC (December): Normal with mild leukopenia. - Recent CBC: No anemia, white blood cell count remains slightly low, consistent with prior findings. - CMP: Electrolytes, kidney function, and liver function are normal. - Glucose: Blood sugar is normal, and A1c is at a good level. - Minerals: Calcium and magnesium levels are normal. - Lipid Panel: Dramatically improved with total cholesterol at 171 and LDL at 86 (down from 184); HDL is high. [facility] Medical History (Updated 06/26/25 @ 13:19 by Sam Gann MD) Obesity (BMI 30-39.9) Bilateral hand pain Breast cancer screening by mammogram Urinary tract infection Visual changes Bacterial infection, unspecified Shingles rash Leukopenia Vitamin D deficiency Impaired glucose tolerance Hypercholesterolemia Hypertension Surgical History History of appendectomy History of plastic surgery History of right hip replacement History of shoulder surgery History of total left hip arthroplasty Family History Father No problems noted. Mother Thyroid disease Hypertension Daughter In good health Brother Thyroid disease Social History (Updated 12/24/24 @ 15:07 by Sam Gann MD) Housing: House Alcohol intake: never Comment: once q 2 months 1-2 drinks Patient Tobacco Use Status: Former Tobacco user Tobacco use type: Cigarette Years Smoked: 20 years old, quit now e-Cigarette/Vaping Use: Never Used Second Hand Smoke Exposure: No service: No Current occupational status: employed Cognitive needs: No Hearing needs: No Vision needs: Yes Questionnaire Thrive Questionnaire Date Thrive assessed: 12/20/24 I am a: Patient What is your living situation today?: I have a steady place to live Within the past 12 months, did the food you bought not last and you didn't have the money to get more?: I choose not to answer this question Within the past 12 months, did you worry whether your food would run out before you got money to buy more?: I choose not to answer this question Do you have trouble paying for medicines?: I choose not to answer this question Do you have trouble getting transportation to medical appointments?: No Do you have trouble paying your heating and electricity bill?: No Do you have trouble taking care of your child, family member or friend?: No Do you have trouble with day-to-day activities such as bathing, preparing meals, shopping, managing finances, etc.?: No Are you currently unemployed and looking for a job?: No Are you interested in more education?: No Please select the resources that you would like help with: None Currently or been in a relationship where the following occur: No concerns reported THRIVE Score: 0 KUSHAL-7 AMB Questionnaire KUSHAL-7 Date KUSHAL - 7 assessed: 12/24/24 Source: Developed by Drs. Cruz Quiroga, Lacey Ca, Robert Raya and colleagues, with an educational eddie from [employer]. Review of Systems Narrative Review of Systems - Constitutional: Reports extreme tiredness for two days following tirzepatide injection. - Gastrointestinal: Reports occasional nausea with tirzepatide, though it is less frequent now. - Musculoskeletal: Reports generalized arthritis pain, most prominently in her fingers. - Cardiovascular: Denies leg swelling. Physical exam (Primary Care) Vital Signs: Last Vital Signs Temp 97.6 F 06/26/25 13:02 Pulse 99 06/26/25 13:02 BP 100/70 06/26/25 13:31 Pulse Ox 84 L 06/26/25 13:02 Oxygen Delivery Method Room Air 06/26/25 13:02 BMI result Body Mass Index 29.3 Tobacco/Smoking Status: Tobacco use Status Tobacco use date assessed 12/24/24 06/26/25 13:02 Patient Tobacco Use Status Former Tobacco user 06/26/25 13:02 Tobacco use type Cigarette 06/26/25 13:02 e-Cigarette/Vaping Use Never Used 06/26/25 13:02 Thrive Assessment: Date of Thrive Assessment Date Thrive assessed 12/20/24 06/26/25 13:02 Currently or been in a relationship where the following occur: No concerns reported Narrative Physical Exam - Vitals: Blood pressure was low. - General: Appears as an overweight female. - Respiratory: Lungs are clear to auscultation bilaterally. - Extremities: No lower extremity edema. Const General: alert; No acute distress Eyes Conjunctivae: conjunctivae normal Resp Auscultation: clear to auscultation bilaterally Cardio Rate: regular rate Rhythm: regular rhythm GI Inspection: Yes normal to inspection Extrem General: Yes normal to inspection and No edema Office Procedures Flu Questionnaire Does the patient have a severe egg allergy?: No Does the patient have severe life threatening allergies?: No Does the patient have a fever or illness today?: No Has the patient ever had Guillain-Riverdale Syndrome?: No Has the patient ever had any past reaction to a flu shot?: No Immunizations Fluarix [id number] (PF) 45 mcg (15 mcg x 3)/0.5 mL IM syringe Performing Provider: Sam Gann MD [facility] Administered by: Amada Jones CMA on 06/26/25 13:35 Dose Route Admin Location Dispensed Lot Number Expiration Date [facility] Full Stack Software Engineer 0.5 mL IM Left Deltoid 0.5 mL [id number] 02/04/26 [id number] [employer] VIS Given Date VIS Provided VIS Publication Date 06/26/25 Single Vaccine 24 Eligibility Eligibility Date Funding Source Not [facility] Eligible 06/26/25 Private Coding Level of Care Code Est Pt Level 4 (56061) Complex EM visit Add On G2211 Diagnoses Essential hypertension I10 Hypertension type: essential hypertension Hypercholesterolemia E78.00 Impaired glucose tolerance R73.02 Overweight (BMI 25.0-29.9) E66.3 Colon cancer screening Z12.11 Generalized anxiety disorder F41.1 History of bilateral hip replacements Z96.643 Assessment & Plan Assessment & Plan (1) Hypertension: Code(s): I10 - Essential (primary) hypertension Category: Medical Qualifiers: Hypertension type: essential hypertension Qualified Code(s): I10 - Essential (primary) hypertension Plan: Continue with blood pressure medication. Decrease salt intake and exercise lisinopril hydrochlorothiazide 20/12.5 mg once a day (2) Hypercholesterolemia: Code(s): E78.00 - Pure hypercholesterolemia, unspecified Category: Medical Plan: Avoid fried foods, chicken skin, eggs, butter margarine, pastries and meat. Be it pork or beef they have a lot of cholesterol patient is not on any medication (3) Impaired glucose tolerance: Code(s): R73.02 - Impaired glucose tolerance (oral) Category: Medical Plan: Decrease the amount of carbohydrate intake, pasta, bread, rice and potatoes are all sugar and that is aside from all the sweet stuff, remember that fruits are good but they are Sweet also. (4) Overweight (BMI 25.0-29.9): Code(s): E66.3 - Overweight Category: Medical Plan: Diet and exercise Edgardo's appetite at 7.5 mg once a week (5) Colon cancer screening: Code(s): Z12.11 - Encounter for screening for malignant neoplasm of colon Category: Medical Plan: Patient is reminded about colonoscopy (6) Generalized anxiety disorder: Comment: decline counselling 08/2023 Code(s): F41.1 - Generalized anxiety disorder Category: Medical Plan: Stable (7) History of bilateral hip replacements: Code(s): Z96.643 - Presence of artificial hip joint, bilateral Category: Surgical Plan Plan Patient was informed and verbally consented to the use of an ambient scribe for clinic note documentation during this visit. 1. Hypertension The patient's blood pressure was noted to be low, likely due to recent weight loss. To avoid overtreatment, the combination medication lisinopril-hydrochlorothiazide 20/12.5 mg is being discontinued. A new prescription for lisinopril 10 mg once daily will be started immediately. The patient was advised to ensure adequate water intake. 2. Hypercholesterolemia The patient has shown a dramatic improvement in cholesterol levels with rosuvastatin, with LDL dropping to 86. The plan is to continue the current low dose of rosuvastatin. 3. Overweight And Impaired Glucose Tolerance The patient reports continued weight loss on tirzepatide 7.5 mg once weekly but feels it is time to increase the dose after being on it for 3-4 months. She experiences significant tiredness for about two days after each injection, with minimal nausea. The plan is to increase the tirzepatide dose to 10 mg once a week. The patient was advised to continue diet and exercise, and to monitor for increased side effects like nausea. 4. Arthritis The patient uses tramadol as needed for generalized arthritis pain, especially in her fingers. She reports having an adequate supply of her medication at this time. The plan is to continue the current management. Discussion Notes I reviewed the patient's recent lab work, highlighting the dramatic improvement in her cholesterol on a low dose of rosuvastatin and her normal blood sugar levels. We discussed her successful weight loss, which has led to her blood pressure now being too low on her current medication. I explained that I am stopping the combination lisinopril/hydrochlorothiazide and prescribing lisinopril 10 mg alone to better manage her blood pressure. We also discussed her request to increase the tirzepatide dose to 10 mg to continue her weight loss progress, and I advised her that while she may lose more weight, side effects like nausea could increase. I reinforced the importance of her being due for a colonoscopy and will place a referral to facilitate scheduling. The patient agreed to receive her annual flu shot today, and we discussed the pros and cons of the shingles vaccine, which she is still considering. I advised a follow-up visit in about three months. Patient Instructions - Stop taking your current blood pressure pill (lisinopril-hydrochlorothiazide). - Start taking the new prescription for lisinopril 10 mg, one pill each day, as soon as you get it. - Increase your weekly tirzepatide injection to the 10 mg dose. - Continue taking your cholesterol medication (rosuvastatin) as prescribed. - You will receive a flu shot today in the office. - We will send a referral for you to schedule a colonoscopy. - Make sure to drink plenty of water. - Schedule a follow-up appointment in about 3 months. Orders: Orders Influenza [id number] Immunization Today Z23 - Encounter for immunization Referrals Gastroenterology Referral Z12.11 - Encounter for screening for malignant neoplasm of colon Medications: New lisinopril 10 mg PO DAILY 30 tabs 3RF Z12.11 - Encounter for screening for malignant neoplasm of colon Changed From tirzepatide (weight loss) 7.5 mg (0.5 mL) subcut QWEEK 4 weeks 2 mL 1RF E66.9 - Obesity, unspecified To tirzepatide (weight loss) 10 mg (0.5 mL) subcut QWEEK 2 mL 2RF 4 weeks E66.9 - Obesity, unspecified From tramadol 50 mg PO Q6-8H 30 days 90 tabs 0RF Z96.643 - Presence of artificial hip joint, bilateral To tramadol 50 mg PO Q6-8H Z96.643 - Presence of artificial hip joint, bilateral Refilled rosuvastatin 5 mg PO DAILY 90 tabs 1RF E78.00 - Pure hypercholesterolemia, unspecified Discontinued lisinopril-hydrochlorothiazide 20-12.5 mg Discontinued Reason: Doctor's Order 1 tab PO DAILY 90 days 90 tabs 2RF
[2025-06-26 13:31] VITALS: BP 100/70
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
== END 2025-06-26 13:41 | disposition home or self-care (01) ==
LOC: HO.HMCH 12:49
PROVIDERS: PCP Internal Medicine; Visit Provider Internal Medicine
DX: I10 Essential (primary) hypertension (principal); E78.00 Pure hypercholesterolemia, unspecified; R73.02 Impaired glucose tolerance (oral); E66.3 Overweight; Z12.11 Encounter for screening for malignant neoplasm of colon; F41.1 Generalized anxiety disorder; Z96.643 Presence of artificial hip joint, bilateral; Z23 Encounter for immunization

== ENCOUNTER → 2025-06-26 12:48 | Outpatient (BNVA) | payer OTHER, SELFPAY | PROVIDERS: PCP Internal Medicine; Visit Provider Internal Medicine | DX: Z12.11 Encounter for screening for malignant neoplasm of colon (principal); Z23 Encounter for immunization; I10 Essential (primary) hypertension; E78.00 Pure hypercholesterolemia, unspecified; R73.02 Impaired glucose tolerance (oral); E66.3 Overweight; F41.1 Generalized anxiety disorder; Z96.643 Presence of artificial hip joint, bilateral; Z68.29 Body mass index [BMI] 29.0-29.9, adult | CPT/HCPCS: 90471; 90656; 99212 ==